=== PATIENT | male | born 1960 | race Caucasian/White ===

== ENCOUNTER 2020-02-19 09:46 | Outpatient (CLI) | payer BC, SELFPAY ==
--- NOTE | 2020-02-19 10:00 | DI.RAD_ITS ---
EXAM: XR KNEE RT 3V AP,LAT,TIERA CLINICAL HISTORY: pain right knee, M25.569. TECHNIQUE: 2D digital imaging was performed. COMPARISON: No exams were available for comparison FINDINGS: There is mild narrowing of the medial femoral tibial joint space. The joint spaces are otherwise wel l maintained. Enthesophytes are seen arising from the anterior patella. The bones are intact. The bones are normally mineralized. IMPRESSION: Mild degenerative changes of the right knee. DATA REPOSITORY: RADIATION DOSE DELIVERED:
--- NOTE | 2020-02-19 10:00 | DI.RAD_ITS ---
EXAM: XR KNEE LT 3V AP,LAT,TIERA CLINICAL HISTORY: pain left knee, M25.569. TECHNIQUE: 2D digital imaging was performed. COMPARISON: CR XR KNEE RT 3V AP,LAT,TIERA from 02/19/2020 FINDINGS: There is mild joint space narrowing and periarticular spurring in the medial femoral tibial joint spa ce. There is mild spurring of the posterior patella. The bones are intact and normally mineralized. The soft tissues are unremarkable. IMPRESSION: [id number] degenerative changes of the left knee. DATA REPOSITORY: RADIATION DOSE DELIVERED:
--- NOTE | 2020-02-19 10:00 | DI.RAD_ITS ---
EXAM: XR HIP LT COMPLETE AP PELVIS CLINICAL HISTORY: Left hip pain, M25.552. TECHNIQUE: 2D digital imaging was performed. COMPARISON: No exams were available for comparison FINDINGS: In the left hip there is mild joint space narrowing and spurring at the femoral head. The bones are intact and normally mineralized. The sacroiliac joints are intact as is the symphysis pubis. Mild d egenerative changes are seen in the lower lumbar spine. The soft tissues are unremarkable. IMPRESSION: Mild degenerative changes of the left hip. DATA REPOSITORY: RADIATION DOSE DELIVERED:
== END 2020-02-19 10:06 ==
PROVIDERS: PCP Family Medicine; Visit Provider Family Medicine
DX: M25.561 Pain in right knee (principal); M17.0 Bilateral primary osteoarthritis of knee; M25.562 Pain in left knee; M25.552 Pain in left hip; M16.12 Unilateral primary osteoarthritis, left hip
CPT/HCPCS: 73562; 73502

== ENCOUNTER 2020-02-29 03:15 | Outpatient (CLI) | payer BC, SELFPAY ==
[2020-02-29 08:58] LABS: Hemoglobin A1C 7.5 % (3.8-5.6)
[2020-02-29 09:24] LABS: Anion Gap 9.5 mmol/L (3-11); BUN 12 mg/dL (7-18); CO2 26.5 mmol/L (21.0-32.0); CREATININE 0.94 mg/dL (0.70-1.30); Calcium 9.4 mg/dL (8.5-10.1); Calculated LDL 123 mg/dL (<100); Chloride 102 mmol/L (98-107); Cholesterol 197 mg/dL (<200); Glucose 199 mg/dL (74-106); HDL Cholesterol 34 mg/dL (40-60); Potassium 4.5 mmol/L (3.5-5.1); Sodium 138 mmol/L (136-145); Triglyceride 204 mg/dL (<150)
== END 2020-02-29 03:35 ==
PROVIDERS: PCP Family Medicine; Visit Provider Family Medicine
DX: I10 Essential (primary) hypertension (principal); E11.9 Type 2 diabetes mellitus without complications
CPT/HCPCS: 36415; 80048; 80061; 83036

== ENCOUNTER 2020-03-17 11:28 | Outpatient (CLI) | payer BC, SELFPAY ==
--- NOTE | 2020-03-17 11:15 | DI.RAD_ITS ---
EXAM: XR HAND RT COMPLETE CLINICAL HISTORY: right hand pain. TECHNIQUE: 2D digital imaging was performed. COMPARISON: No exams were available for comparison FINDINGS: There is an old nonunited fracture of the proximal pole of the scaphoid. There is also deformity of the distal radius. Degenerative changes are seen at the radial carpal and intercarpal region. There is also joint space narrowing and spurring at the 3rd metacarpophalangeal joint and interphalangeal joints of the fingers. IMPRESSION: Degenerative changes. 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 DATA REPOSITORY: RADIATION DOSE DELIVERED:
== END 2020-03-17 11:48 ==
PROVIDERS: PCP Family Medicine; Referring Provider Family Medicine; Visit Provider Student in an Organized Health Care Education/Training Program
DX: M79.641 Pain in right hand (principal); M19.041 Primary osteoarthritis, right hand
CPT/HCPCS: 73130

== ENCOUNTER 2020-03-20 01:51 | Outpatient (CLI) | payer BC, SELFPAY ==
--- NOTE | 2020-03-20 07:15 | DI.RAD_ITS ---
EXAM: RF JOINT INJECTION FLUORO GUID CLINICAL HISTORY: L HIP INJ UNDER FLUORO,lt hip pain,m25.552. TECHNIQUE: 2D and realtime digital imaging was performed. COMPARISON: No exams were available for comparison FINDINGS: Fluoroscopy was provided for guidance with performing a left hip injection. Please see procedure note for details. FLUORO TIME: 1.6 seconds RADIATION DOSE DELIVERED:
[2020-03-20] MEDS: Omnipaque 300 MG/ML 10 ML BTL IJ (15:09)
[2020-03-20] MEDS: Bupivacaine 0.5% Pres-Free 10 ML VIAL 6 ML IV (15:09)
[2020-03-20] MEDS: methylPREDNISolone ACETATE 80 MG/ML VIAL IM (15:10)
--- NOTE | 2020-03-20 21:38 | W.PROCNOTE ---
Date of service: 03/20/20 Time of Service: 14:38 Procedure Note Date of procedure: 03/20/20 Procedure: Left Hip Injection with Fluoroscopic Guidance Surgeon/Proceduralist/Physician: Lopez Hogue Procedure Diagnosis: Left Hip Osteoarthritis Procedure Indications: Ashwin has had persistent pain of the LEFT hip and groin. Noninvasive measures have been tried. To serve as both diagnostic and therapeutic, an injection under fluoroscopy was recommended. I had discussed the risks of the procedure and the patient elected to proceed. Procedure Description: Ashwin was greeted in the flouroscopy room. The correct side was identified and the consent was reviewed with the patient and signed. The patient was then placed in the supine position on the fluoroscopy table. The LEFT hip was then prepped with Chloraprep. The anterolateral injection starting point was identiifed by bony landmarks and fluoroscopy. The skin and soft tissue in the tract of the injection was anesthetized with 1% Lidocaine. A spinal needle was then inserted deep into the hip joint at the level of the lateral femoral neck under fluoroscopic guidance. A small amount of Omnipaque solution was injected to confirm intraarticular placement. Once confirmed, the hip was injected with 6cc of 0.5% Bupivicaine and 80mg of Depo-Medrol. A bandaid was placed on the injection site. The patient tolerated the procedure well and noted improvement in pre-injection pain.
== END 2020-03-20 02:11 ==
PROVIDERS: PCP Family Medicine; Visit Provider Student in an Organized Health Care Education/Training Program
DX: M16.12 Unilateral primary osteoarthritis, left hip
CPT/HCPCS: 20610; 77002; J1040

== ENCOUNTER 2020-03-26 08:29 | Outpatient (CLI) | payer BC, SELFPAY ==
--- NOTE | 2020-03-26 14:46 | DI.CT_ITS ---
EXAM: CT UPPER EXTREMITY RT WO CLINICAL HISTORY: pain in joints of rt hand, m25.541,metacarpophalangeal joint pain TECHNIQUE: COMPARISON: CR XR HAND RT COMPLETE from 03/17/2020 FINDINGS: CT examination of the hand was performed utilizing multi slice acquisition and multiplanar reconstruc tion. The patient reportedly has pain reparable to the 4th metacarpal. Bones of the hand generally appear fairly well mineralized. Carpus: There are multiple sub chondral cyst visible in the carpus, presumably on a degenerative basi s. Carpal alignment appears generally within normal limits. There is an apparent chronic navicular waist fracture with 2-3 millimeters displacement. A free couple of tiny os ossific bodies are seen a t radial navicular joint and also at radial lunate joint. Metacarpals and phalanges there is narrowing of the cartilaginous joint spaces of the M CP joints and IP joints, most marked at the 3rd MCP joint. There is a sub chondral cyst of the head of the 4th me tacarpal, no gross erosive or destructive process identified. 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 Degenerative changes of the carpus, the MCP joints, and the IP joints of the hand as described.
== END 2020-03-26 08:49 ==
PROVIDERS: PCP Family Medicine; Visit Provider Student in an Organized Health Care Education/Training Program
DX: M25.541 Pain in joints of right hand (principal); M19.041 Primary osteoarthritis, right hand; M19.031 Primary osteoarthritis, right wrist
CPT/HCPCS: 73200

== ENCOUNTER 2020-07-10 01:18 | Outpatient (CLI) | payer BC, SELFPAY ==
--- NOTE | 2020-07-10 13:38 | W.PROCNOTE ---
Date of service: 07/10/20 Time of Service: 13:39 Procedure Note Date of procedure: 07/10/20 Procedure: Left Hip Injection with Fluoroscopic Guidance Surgeon/Proceduralist/Physician: Lopez Hogue Procedure Diagnosis: Left Hip Osteoarthritis Procedure Indications: Ashwin has had persistent pain of the LEFT hip and groin. Noninvasive measures have been tried. To serve as both diagnostic and therapeutic, an injection under fluoroscopy was recommended. I had discussed the risks of the procedure and the patient elected to proceed. Procedure Description: Ashwin was greeted in the flouroscopy room. The correct side was identified and the consent was reviewed with the patient and signed. The patient was then placed in the supine position on the fluoroscopy table. The LEFT hip was then prepped with Chloraprep. The anterolateral injection starting point was identiifed by bony landmarks and fluoroscopy. The skin and soft tissue in the tract of the injection was anesthetized with 1% Lidocaine. A spinal needle was then inserted deep into the hip joint at the level of the lateral femoral neck under fluoroscopic guidance. A small amount of Omnipaque solution was injected to confirm intraarticular placement. Once confirmed, the hip was injected with 6cc of 0.5% Bupivicaine and 80mg of Depo-Medrol. A bandaid was placed on the injection site. The patient tolerated the procedure well and noted improvement in pre-injection pain.
[2020-07-10] MEDS: Bupivacaine 0.5% Pres-Free 10 ML VIAL 6 ML IV (14:17)
[2020-07-10] MEDS: Omnipaque 300 MG/ML 10 ML BTL 1.5 ML IJ (14:48)
[2020-07-10] MEDS: methylPREDNISolone ACETATE 80 MG/ML VIAL IM (14:49)
--- NOTE | 2020-07-10 15:30 | DI.RAD_ITS ---
EXAM: RF JOINT INJECTION FLUORO GUID CLINICAL HISTORY: L HIP INJ UNDER FLUORO,DJD LT HIP, PRIMARY OA LT HIP,M16.12 TECHNIQUE: 2D and realtime digital imaging was performed. CONTRAST MATERIAL: Water soluble contrast was administered. COMPARISON: No exams were available for comparison FINDINGS: Fluoroscopy was provided for Dr. Hogue during the performance of a hip injection. Please refer t o the procedure report for complete details. Fluoro time: 15 seconds
== END 2020-07-10 01:38 ==
PROVIDERS: PCP Nurse Practitioner; Visit Provider Student in an Organized Health Care Education/Training Program
DX: M16.12 Unilateral primary osteoarthritis, left hip (principal); M25.552 Pain in left hip; R10.32 Left lower quadrant pain
CPT/HCPCS: 20610; 77002; J1040

== ENCOUNTER 2020-09-23 02:21 | Outpatient (CLI) | payer BC, SELFPAY ==
[2020-09-24 12:45] LABS: COVID-19 RT-PCR UVMMC Result Negative (Negative)
== END 2020-09-23 02:22 | disposition home or self-care (01) ==
LOC: LBO 02:21
PROVIDERS: PCP Nurse Practitioner; Visit Provider Surgery
DX: Z11.52 Encounter for screening for COVID-19 (principal); Z01.818 Encounter for other preprocedural examination
CPT/HCPCS: U0003

== ENCOUNTER 2020-09-26 12:04 | Day surgery (SDC) | payer BC, SELFPAY ==
[2020-09-26 12:13] VITALS: BP 151/92; PULSE 92; RESP 20; TEMP 36.4; O2SAT 95
[2020-09-26] MEDS: Lactated Ringers 1,000 ML 80 ML IV (12:34)
[2020-09-26 13:50] VITALS: BP 129/74; PULSE 72; RESP 21; TEMP 36.9; O2SAT 96
[2020-09-26 13:55] VITALS: BP 130/74; PULSE 72; RESP 16; TEMP 36.9; O2SAT 95
[2020-09-26 14:00] VITALS: BP 141/81; PULSE 73; RESP 13; TEMP 36.9; O2SAT 95
--- NOTE | 2020-09-26 14:15 | W.PM.DSUDISC ---
Discharge Plan Disposition Patient Disposition: HOME Condition: Good Discharge Details Reason For Visit: colon scope Attending Provider: Keke Monique Primary Care Provider: Imelda Salgado Home Meds and New Rx's Prescriptions: Continued metformin 500 mg tablet 500 mg PO BID Qty: 180 RF: 4 amlodipine 5 mg tablet 5 mg PO DAILY Qty: 30 RF: 0 metoprolol succinate 100 mg tablet extended release 24 hr 100 mg PO DAILY Qty: 90 RF: 3 atorvastatin 40 mg tablet 40 mg PO QPM Qty: 90 RF: 4 lisinopril 40 mg tablet 40 mg PO DAILY Qty: 90 RF: 4 Tart You 1 EACH capsule 2 ea PO DAILY Qty: 180 RF: 0 aspirin [Aspirin Low-Strength] 81 MG tablet,chewable 2 tab PO DAILY RF: 0 Tart You Extract 1,000 mg Capsule 2,000 mg PO DAILY RF: 0 Discontinued polyethylene glycol 3350 17 gram/dose powder 238 g PO ONCE Qty: 238 RF: 0 bisacodyl [Dulcolax (bisacodyl)] 5 mg tablet,delayed release (DR/EC) 5 mg PO ONCE Qty: 4 RF: 0 Discharge Instructions Additional Instructions: Findings:normal colon Follow up:I would not recommend any further screening colonoscopies. If you develop changes in your bowel, that persists more than two weeks, rectal bleeding that persists more than two weeks, or unexplained weight loss, please see your primary doctor. Please call if you develop: fevers >101.5 Nausea or Vomiting Abdominal pain that is not transient DAY SURGERY UNIT POST COLONOSCOPY INSTRUCTIONS 1. Because there will be medication in your system for the next 24 hours, you may feel a little sleepy. Your coordination will be affected. Therefore: a. Do not drive or operate dangerous equipment for 24 hours. b. Do not drink alcohol beverages for 24 hours (not even beer). c. Plan to go home and rest for the day. 2. Generally there are no restrictions on your activity after a day or so has gone by, but you may feel a bit fatigued for a few days. 3 After you arrive home you may have a light meal and return to a normal diet as you can tolerate it without feeling sick to your stomach. 4. After surgery, you may feel pain or discomfort. This should be only transient, but if it persists please contact your doctor. 5. If there are any questions regarding the findings of your procedure, please feel free to contact your doctor. 6. If you are unable to contact your doctor with a problem, contact the hospital at [phone]. 7. Continue all your regular medications unless directed otherwise. I understand the above instructions and have no questions. Signature of Patient or Responsible Adult Escort Date/Time Name of Responsible Adult Escort Signature of Nurse Date/Time Activity:: No strenuous activity or lifting over 20 pounds x 24 hours. Diet:: Small light meals x24 hours. Discharge Orders Discharge Orders: Discharge Order (Routine); Ordered 09/26/20 Ordered By: Keke Monique DS: Diagnosis Discharge Diagnosis (1) Colon cancer screening: Status: Acute
--- NOTE | 2020-09-26 14:20 | COLE_ITS ---
Date of service: 09/26/20 Time of Service: 14:20 Colonoscopy Report Date of procedure: 09/26/20 Pre-op diagnosis general: CRC screen Post-op diagnosis procedure note: same Surgeon: Keke Monique Anesthesia proc note operative: GETA Estimated blood loss (mL): 0 Pathology: none sent Complications: None Disposition: PACU Prep: Miralax/Dulcolax Retraction Time: 8 mins Procedure Description: After informed consent was obtained the patient was taken to the procedure room and placed in a left decubitous position. Monitors were applied and a time out was done. The patients name, date of , procedure, allergies to medications and metal in their body was reviewed. The patient was then sedated. Once sedated and comfortable a rectal exam was done. External exam was normal. Internal exam revealed a normal sphincter tone and no palpable masses. The scope was then introduced and retrofelexed. No internal hemorrhoids were identified. The scope was then advanced to the cecum w/ out difficulty. The TI and appendiceal orifice were identified. The prep was good. The scope was then slowly retracted over 8 minutes back into the rectum. There are no polyps, AVMs, or diverticula visualized. The mucosa is pink and healthy. The scope was removed and the patient was woken up and taken back to Same day surgery in stable condition. The patient tolerated the procedure well and there were no immediate complicati ons. Follow up: The patient doesn't require any further colonoscopies, unless they develop changes in bowel habits or other new gastrointestinal complaints.
[2020-09-26 14:48] VITALS: BP 115/62; PULSE 69; RESP 22; TEMP 36.7; O2SAT 94
== END 2020-09-26 15:05 | disposition home or self-care (01) ==
PROVIDERS: PCP Nurse Practitioner; Visit Provider Surgery
PROC: 0DJD8ZZ Inspection of Lower Intestinal Tract, Via Natural or Artificial Opening Endoscopic (ICD-10-PCS; CPT 45378; principal; 2020-09-26 09:45)
DX: Z12.11 Encounter for screening for malignant neoplasm of colon (principal); G47.33 Obstructive sleep apnea (adult) (pediatric)
CPT/HCPCS: 45378; J2001; J2250

== ENCOUNTER 2020-10-16 03:24 | Outpatient (CLI) | payer BC, SELFPAY ==
[2020-10-16 08:12] LABS: Hemoglobin A1C 7.5 % (<5.7)
[2020-10-16 08:36] LABS: CREATININE 0.8 mg/dL (0.70-1.30); Calculated LDL 47 mg/dL (<100); Cholesterol 104 mg/dL (<200); HDL Cholesterol 37 mg/dL (40-60); Potassium 4.2 mmol/L (3.5-5.1); Triglyceride 104 mg/dL (<150)
== END 2020-10-16 03:25 | disposition home or self-care (01) ==
LOC: LBO 03:24
PROVIDERS: PCP Nurse Practitioner; Visit Provider Nurse Practitioner
DX: E11.9 Type 2 diabetes mellitus without complications (principal); I10 Essential (primary) hypertension; E78.00 Pure hypercholesterolemia, unspecified
CPT/HCPCS: 36415; 80061; 82565; 83036; 84132

== ENCOUNTER 2020-11-13 01:14 | Outpatient (CLI) | payer BC, SELFPAY ==
--- NOTE | 2020-11-13 09:45 | DI.RAD_ITS ---
EXAM: XR HIP LT AP LAT ONLY CLINICAL HISTORY: f/u, worsening pain of left hip,M16.12,DJD LT HIP. TECHNIQUE: 2D digital imaging was performed. COMPARISON: CR XR HIP LT COMPLETE AP PELVIS from 02/19/2020 FINDINGS: There is no evidence of left hip fracture but there are moderate degenerative changes with some mid l evel joint space narrowing evident in the hip joint. No ominous osseous lesions. Bone density sheila l. Some degenerative changes noted in the ipsilateral sacroiliac joint. IMPRESSION: DATA REPOSITORY: RADIATION DOSE DELIVERED:
== END 2020-11-13 01:34 ==
PROVIDERS: PCP Nurse Practitioner; Visit Provider Student in an Organized Health Care Education/Training Program
DX: M25.552 Pain in left hip (principal); M16.12 Unilateral primary osteoarthritis, left hip
CPT/HCPCS: 73502

== ENCOUNTER 2021-07-06 03:11 | Outpatient (CLI) | payer BC, SELFPAY ==
[2021-07-06 14:05] LABS: Hemoglobin A1C 7.6 % (<5.7)
[2021-07-06 14:32] LABS: CREATININE 0.9 mg/dL (0.70-1.30); Calculated LDL 79 mg/dL (<100); Cholesterol 143 mg/dL (<200); HDL Cholesterol 39 mg/dL (40-60); Potassium 4.4 mmol/L (3.5-5.1); Triglyceride 126 mg/dL (<150)
== END 2021-07-06 03:12 | disposition home or self-care (01) ==
LOC: LOS 03:12
PROVIDERS: PCP Nurse Practitioner; Visit Provider Nurse Practitioner
DX: E11.9 Type 2 diabetes mellitus without complications (principal); I10 Essential (primary) hypertension; E78.00 Pure hypercholesterolemia, unspecified
CPT/HCPCS: 36415; 80061; 82565; 83036; 84132

== ENCOUNTER 2021-07-22 12:24 | Outpatient (REF) | payer BC, SELFPAY | END 2021-07-22 12:25 | disposition home or self-care (01) | LOC: LBN 12:24 | PROVIDERS: PCP Nurse Practitioner; Visit Provider Nurse Practitioner | DX: E11.9 Type 2 diabetes mellitus without complications (principal); I10 Essential (primary) hypertension | CPT/HCPCS: 82043; 82570 ==

== ENCOUNTER 2021-10-02 02:19 | Outpatient (CLI) | payer BC, SELFPAY ==
[2021-10-02 12:14] LABS: Hemoglobin A1C 8.3 % (<5.7)
[2021-10-02 13:03] LABS: COMMENT (LAB VIEW ONLY) 45.06 mg/dL
[2021-10-02 13:04] LABS: Microalb ug/mg Crea 123.6 ug/mg Cr
== END 2021-10-02 02:20 | disposition home or self-care (01) ==
LOC: LBO 02:19
PROVIDERS: PCP Nurse Practitioner; Visit Provider Nurse Practitioner
DX: E11.9 Type 2 diabetes mellitus without complications (principal)
CPT/HCPCS: 36415; 82043; 82570; 83036

== ENCOUNTER 2022-06-24 11:05 | Outpatient (CLI) | payer BC, SELFPAY ==
--- NOTE | 2022-06-24 11:00 | RT.EKG_ITS ---
APPROVED REPORT Exam: Resting ECG Reason for Exam: chest discomfort Patient Location: O HR:136 bpm ECG Measurements Heart Rate 136 AXIS ME [id number] P [id number] QRSd 106 QRS 6 QT 348 T 28 QTc 524 Conclusion Atrial fibrillation...V-rate 97-167, irreg A-activity Low voltage, precordial leads...precordial leads <1.0mV Prolonged QT interval...QTc >500mS
== END 2022-06-24 11:06 | disposition home or self-care (01) ==
LOC: DI.CM 11:06
PROVIDERS: PCP Nurse Practitioner; Visit Provider Nurse Practitioner Family
DX: R07.89 Other chest pain (principal); R94.31 Abnormal electrocardiogram [ECG] [EKG]; I48.91 Unspecified atrial fibrillation
CPT/HCPCS: 93010

== ENCOUNTER 2022-06-24 11:33 | Inpatient (IN) | payer BC, SELFPAY ==
[2022-06-24] VITALS (53 sets, daily range): BP systolic 80–207; BP diastolic 40–132; PULSE 69–156; RESP 6–34; TEMP 36.4–38; O2SAT 90–97
--- NOTE | 2022-06-24 11:30 | RT.EKG_ITS ---
APPROVED REPORT Exam: Resting ECG Reason for Exam: A simon Patient Location: E HR:139 bpm ECG Measurements Heart Rate 139 AXIS UT [id number] P [id number] QRSd 99 QRS 24 QT 333 T 30 QTc 507 Conclusion Atrial fibrillation...V-rate 101-167, irreg A-activity Low voltage, precordial leads...precordial leads <1.0mV Prolonged QT interval...QTc >500mS Rate related ST changes
--- NOTE | 2022-06-24 11:53 | ED.GENADUL_ITS ---
Discharge Plan Disposition Patient Disposition: [facility] INPATIENT Condition: Stable Discharge Details Clinical Impression: Atrial fibrillation with RVR, Rectal pain Primary Care Provider: Imelda Salgado ED Provider: Jordy Beatty [place] Meds and New Rx's Prescriptions: No Action metformin 1,000 mg tablet 1,000 mg PO BID Qty: 180 4RF atorvastatin 40 mg tablet 40 mg PO QPM Qty: 90 4RF amlodipine 10 mg tablet 10 mg PO DAILY Qty: 90 4RF lisinopril 40 mg tablet 40 mg PO DAILY Qty: 90 4RF metoprolol succinate 200 mg tablet extended release 24 hr 200 mg PO DAILY Qty: 90 4RF hydrochlorothiazide 25 mg tablet 25 mg PO DAILY Qty: 90 4RF Jardiance 25 mg tablet 25 mg PO DAILY Qty: 90 4RF Tart You 1 EACH capsule 2 ea PO DAILY Qty: 180 Rx Instructions: For gout prevention aspirin [Aspirin Low-Strength] 81 MG tablet,chewable 2 tab PO DAILY Medical Decision Making Patient had been to primary care for rectal pain and pressure which he has had for a week and was found to be in rapid A. fib. He does have history back in 2014 according to him. He is on metoprolol which he took this morning. He is not on anticoagulation. He is completely asymptomatic. IV established and laboratory studies obtained. Given that he took 200 of metoprolol already this morning and remains in rapid A. fib at 150 we will proceed with Cardizem bolus and drip. His EKG shows rate related ST changes but no evidence of acute infarct. Chest x-ray ordered. Patient's A. fib did slow after Cardizem bolus and drip but still continues to run as high as 120 at times. Drip uptitrated to 15 mg/h. Patient continues to complain of rectal pain and pressure. I called and spoke to the provider who saw him. She reports that rectal exam was tender overall not prostate tenderness. She also reports blood on the glove when she remove her finger. Because of this I did elect to scan abdomen pelvis to rule out potential perirectal or pelvic abscess which may be driving the A. fib. He was given morphine prior to CAT scan for his discomfort. Patient's laboratory studies are unremarkable. His white count and hemoglobin are normal. Chemistries unremarkable other than a slightly low potassium at 3.4 and a minimal anion gap at 13. Liver function is normal. TSH is normal. Troponin is negative. Urine is still pending. CT scan per radiology negative for acute process. Will discuss with hospitalist for admission to ICU for rate control and management of his A. fib and consider surgical consult for his rectal pain and pressure. Medical Records Medical records reviewed: Yes I reviewed the patient's medical records. Lab Data Lab results reviewed: Yes I reviewed the patient's lab results. ECG Data Attestation: I personally reviewed and interpreted this ECG (s) as follows: Prior ECG tracings: not available for review Interpretation: See EKG HPI General Mode of arrival: ambulatory . Date/Time Provider Initiated Documentation: 06/24/22 11:53 . Limitations to Documentation: no limitations . Information obtained by: patient . HPI Narrative: Patient presents to ED with rapid atrial fibrillation. Patient had gone to primary care for rectal pain and pressure which he has had for few weeks now. He was found to be tachycardic there. EKG showed atrial fibrillation. Patient reports prior episode in 2014. He is on a beta-jorge but he is not on anticoagulation. He denies having any type of chest pain or pressure, palpitations, shortness of breath, nausea. He had no idea that he was in atrial fibrillation. Per provider report his rectal exam was Hemoccult positive. Patient has not noticed any dark or bloody stool. He is not having any vomiting or abdominal pain. He has pain and discomfort with sitting as well as having bowel movements. He has no urinary symptoms. Related Data Home Medications Medication Instructions Recorded Confirmed aspirin 81 mg chewable tablet 2 tab PO DAILY 02/01/13 06/24/22 (Aspirin Low-Strength) vit C 30 mg-s.you 250 mg-celery 2 ea PO DAILY #180 caps 12/24/14 06/24/22 seed 75 mg-grape seed extrt capsule (Tart You) amlodipine 10 mg tablet 10 mg PO DAILY #90 tabs 07/03/21 06/24/22 atorvastatin 40 mg tablet 40 mg PO QPM #90 tabs 07/03/21 06/24/22 lisinopril 40 mg tablet 40 mg PO DAILY #90 tabs 07/03/21 06/24/22 metformin 1,000 mg tablet 1,000 mg PO BID #180 tabs 07/03/21 06/24/22 hydrochlorothiazide 25 mg tablet 25 mg PO DAILY #90 tabs 07/23/21 06/24/22 metoprolol succinate 200 mg 200 mg PO DAILY #90 tabs 09/11/21 06/24/22 tablet,extended release 24 hr empagliflozin 25 mg tablet 25 mg PO DAILY #90 tabs 10/06/21 06/24/22 (Jardiance) Previous Rx's Medication Instructions Recorded amlodipine 10 mg tablet 10 mg PO DAILY #90 tabs 07/03/21 atorvastatin 40 mg tablet 40 mg PO QPM #90 tabs 07/03/21 lisinopril 40 mg tablet 40 mg PO DAILY #90 tabs 07/03/21 metformin 1,000 mg tablet 1,000 mg PO BID #180 tabs 07/03/21 hydrochlorothiazide 25 mg tablet 25 mg PO DAILY #90 tabs 07/23/21 metoprolol succinate 200 mg 200 mg PO DAILY #90 tabs 09/11/21 tablet,extended release 24 hr empagliflozin 25 mg tablet 25 mg PO DAILY #90 tabs 10/06/21 (Jardiance) Allergies Allergy/AdvReac Type Severity Reaction Status Date / Time sulfamethoxazole AdvReac Intermediate Headache Verified 02/04/22 08:40 [From Bactrim] and stiff neck trimethoprim [From Bactrim] AdvReac Intermediate Headache Verified 02/04/22 08: 40 and stiff neck General Stated Complaint: Chest Pain YUKO: 3 Review of Systems Narrative: 06/04 Review of Systems completed and is negative except as stated above in HPI (Systems reviewed: Const, Eyes, ENT, Resp, CV, GI, , MSK, Skin, Neuro) PFSH All Active Problems (Updated 06/24/22 @ 15:38 by Jordy Beatty MD) Atrial fibrillation with RVR (Acute) Rectal pain (Acute) Lumbago (Acute) L5-S-1 disc and spinal stenosis; discectomy and laminectomy Metacarpophalangeal joint pain of right hand (Acute) Microalbuminuria due to type 2 diabetes mellitus (Acute) 08/10- microalb/ creat ration 200 Skin lesion (Acute) Degenerative joint disease of left hip (Acute) Injection under fluoroscopy: 03/20/20 Osteoarthrosis (Chronic) Peripheral venous insufficiency (Acute) Obesity (Acute) Gout (Acute) Medical History Atrial fibrillation Diabetes mellitus (01/26/11) Difficult airway At [facility] [place], records unavailable because intubation too long ago Essential hypertension (06/25/13) Hx of gout Hypercholesterolemia TYPE 4 HYPERLIPIDEMIA Hypertension Obesity, Class III, BMI 40-49.9 (morbid obesity) MIRI (obstructive sleep apnea) a. on CPAP at night Surgical History Colonoscopy - IV Sedation 8 years ago-normal DISCECTOMY 01/20 H/O surgical procedure a. back surgery b. wrist surgery Repair of umbilical hernia (08/04/17) Family History Mother , 84 Essential hypertension Heart disease Father , 80 Diabetes Essential hypertension Personal history of malignant neoplasm BLADDER.MELANOMA Depression Heart disease Stroke Brother Essential hypertension Maternal Grandfather , 93 Diabetes Alcohol abuse Heart disease Hyperlipidemia Paternal Grandfather , 71 Alcohol abuse Essential hypertension Heart disease Maternal Grandmother , 70 Diabetes Essential hypertension Heart disease Stroke Grandmother , 84 Alcohol abuse Heart disease Son Essential hypertension Social History Smoking/Tobacco Use Status: Never Second Hand Exposure: Yes Smoking risk assessment performed?: Yes Alcohol Intake: current Alcohol Intake frequency: a few times a month Alcohol type: beer and wine Drug use: Never Substance use type: does not use Household members: spouse and children Housing: house Communication Needs: None Do you need help understanding health information?: Never Sexually active: Yes Do you think of yourself as: straight/heterosexual Current gender identity: male What is your relationship status?: How often do you talk on the phone with friends or family?: three or more times per week How often do you get together with friends or relatives?: once per week Do you belong to any clubs or organized social groups?: no Panel score (0-1 are the most socially isolated patients): 2 What type of physical activity do you participate in: walking and bicycling Duration: 45-60 minutes/day Frequency: 5-6 times per week Radha/Amish: Denominational Special radha needs: No Seatbelt use: sometimes Helmet use: Yes Helmet use: always Drive intox or ride w/intox utility worker driver: No Do you feel safe at home: Yes Do you feel safe in your relationship?: Yes Exam Narrative Exam Narrative: Const: Morbidly obese male in NAD. HEENT: NC/AT. Normal facial exam. Eyes: Normal conjunctiva and sclera. Neck: Supple. Trachea midline. Lungs: Normal respiratory effort. Lungs are clear. Cor: irr/irr tachy without murmur/gallop. Good radial pulses. GI: Soft. NT/ND. No guarding or rebound. Neuro: A+O x 3. Normal speech, mentation, gait. Cranial nerves II - XII grossly intact. No gross motor or sensory deficit. Ext: No C/C/E. Skin: Warm and dry without rash. Course Vital Signs Vital signs: Vital Signs Temperature 97.6 F 06/24/22 11:39 Pulse 80 06/24/22 11:39 Respiratory Rate 20 06/24/22 11:39 Blood Pressure 134/86 06/24/22 11:39 Pulse Oximetry 97 06/24/22 11:39 Temperature 97.6 F 06/24/22 11:39 Temperature Source Oral 06/24/22 11:39 Pulse 80 06/24/22 11:39 Respiratory Rate 20 06/24/22 11:44 Respiratory Effort Non-Labored 06/24/22 11:44 Respiratory Depth Normal 06/24/22 11:44 Respiratory Pattern Normal 06/24/22 11:44 Blood Pressure 134/86 06/24/22 11:39 Blood Pressure Position Sitting 06/24/22 11:39 Pulse Oximetry 97 06/24/22 11:39 Oxygen Delivery Method Room Air 06/24/22 11:39 Oxygen Flow Rate 0 06/24/22 11:39 Critical Care Time Critical Care Time Critical Care Time: Yes Total Critical Care Time: 45 Attestation: Upon my evaluation, this patient had a high probability of imminent or life- threatening deterioration, which required my direct attention, intervention, and personal management. I have personally provided 45 minutes of critical care time exclusive of time spent on separately billable procedures. Time includes review of laboratory data, radiology results, discussion with consultants, and monitoring for potential decompensation. Interventions were performed as documented above. PAWSS Have you Been Recently Intoxicated or Drunk Within the Last 30 days?: No Have you Ever Experienced Previous Episodes of Alcohol Withdrawal?: No Have you ever Experienced Withdrawal Seizures?: No Have you ever Experienced Delirium Tremens(DT)s?: No Have you ever undergone Alcohol Rehabilitation Treatment (i.e, inpt ot outpatient treatment programs)?: No Have you ever Experienced Blackouts?: No Have you ever Combined Alcohol with other Downers within the last 90 days?: No Have you ever Combined Alcohol with any other Substance of Abuse during the last 90 days?: No Positive Blood Alcohol level on Presentation? [PCS.BAL]: No Evidence of Increased Autonomic Activity (i.e. HR>120, tremor, sweating, agitation, nausea)?: No Result: 0
[2022-06-24] MEDS: dilTIAZem 25 MG/5 ML VIAL 20 MG IVP (12:17)
[2022-06-24 12:18] LABS: Abs Immature Grans 0.09 10^3/uL (0.0-0.06); Absolute Basophil Count 0.05 10^3/uL (0.0-0.2); Absolute Eosinophil Count 0.08 10^3/uL (0.0-0.7); Absolute Lymphocyte Count 2.22 10^3/uL (1.2-3.4); Absolute Neutrophil Count 4.45 10^3/uL (1.2-6.7); Basophils % 0.6; HCT 48.2 % (40.0-50.0); HGB 16.5 g/dL (13.5-17.5); Immature Grans % 1.1; Lymphocytes % 27.1; MCH 31.3 pg (27.0-33.0); MCHC 34.2 % (32.0-36.0); MCV 91 fL (80-95); MPV 10.4 fL (8.0-11.0); Monocytes % 15.9; Neutrophils % 54.3; Platelet Count 264 10^3/uL (130-400); RBC 5.28 10^6/uL (4.36-5.78); RDW 12.3 % (11.8-14.1); RDW-SD 41.4 fL; WBC 8.19 10^3/uL (4.4-10.8)
[2022-06-24] MEDS: Normal Saline 1,000 ML 1000 ML IV (12:18)
[2022-06-24] MEDS: dilTIAZem 125 MG in Normal Saline 100 ML 10 MG IV (12:34)
[2022-06-24 12:41] LABS: ALT 49 U/L (16-63); AST 28 U/L (15-37); Albumin 3.6 g/dL (3.4-5.0); Alkaline Phosphatase 63 U/L (46-116); BUN 17 mg/dL (7-18); Bilirubin, Total 0.7 mg/dL (0.2-1.0); Calcium 9.6 mg/dL (8.5-10.1); Chloride 103 mmol/L (98-107); Estimated GFR 84.57 (mL/min/1.73m2); Glucose 146 mg/dL (74-106); Magnesium 1.8 mg/dL (1.8-2.4); Potassium 3.4 mmol/L (3.5-5.1); Sodium 140 mmol/L (136-145); TSH (W/Ref FT4) 1.04 uIU/mL (0.36-3.74); Total Protein 8.3 g/dL (6.4-8.2); Troponin I < 50 ng/L (<or=60)
--- NOTE | 2022-06-24 13:07 | DI.RAD_ITS ---
Exam(s) XR PORTABLE CHEST AP EXAM: XR PORTABLE CHEST AP CLINICAL HISTORY: a fib. TECHNIQUE: 2D digital imaging was performed. COMPARISON: No exams were available for comparison FINDINGS: LUNGS: Clear. No pleural abnormality seen. HEART: Normal. MEDIASTINUM: Normal. OTHER FINDINGS: None. IMPRESSION: No acute pulmonary findings. DATA REPOSITORY: RADIATION DOSE DELIVERED: Total DLP
--- NOTE | 2022-06-24 13:30 | DI.CT_ITS ---
Exam(s) CT ABDOMEN PELVIS W EXAM: CT ABDOMEN PELVIS W CLINICAL HISTORY: pelvic/rectal pain TECHNIQUE: COMPARISON: No exams were available for comparison FINDINGS: CT examination of the abdomen and pelvis was performed with bolus infusion of 125 cc of Omnipaque 350 . Images obtained through the lung bases are unremarkable. The liver appears normal with no evidence of a focal mass. Spleen is unremarkable in appearance.. Gallbladder and bile ducts are unremarkable. Pancreas is unremarkable in appearance. There is a right adrenal nodule measuring about 17 millimeters in diameter which is indeterminate. F ollow-up CT recommended in 12 months to assess stability.. Kidneys appear normal with no evidence of renal mass, hydronephrosis, or nephrolithiasis. Unremarkab le bladder. There is no evidence of abdominal or pelvic adenopathy. Abdominal aorta is of normal diameter and no abnormality is seen involving major visceral branches.. Appendix is not specifically visualized but there is no evidence appendicitis. No evidence diverticu litis or bowel obstruction. No significant abdominal wall hernia seen. Impression: Negative CT examination of the abdomen and pelvis. Unexpected findings: Right adrenal nodule, 17 millimeters, follow-up CT recommended in 12 months. RADIATION DOSE DELIVERED: Total DLP Total DLP !Error CTDIvol DATA REPOSITORY: All CT scans at this facility are submitted to the National Radiology Data Registry (NRDR) Dose Index Registry (DIR) with the [employer] (ACR). RADIATION OPTIMIZATION: All CT scans at this facility use at least one of these dose optimization te chniques: automated exposure control; mA and/or kV adjustment per patient size (includes targeted exa ms where dose is matched to clinical indication); or iterative reconstruction.
[2022-06-24] MEDS: MORPHine 4 MG/ML SYR IVP (13:59)
[2022-06-24] MEDS: Omnipaque 350 MG/ML 500 ML BTL-Imaging package IJ (15:10)
[2022-06-24 16:47] LABS: Source Nasal/Nares
[2022-06-24 17:03] LABS: Troponin I < 50 ng/L (<or=60)
[2022-06-24 17:17] LABS: COVID-19 PCR Negative (Negative)
[2022-06-24] MEDS: Potassium Chloride 20 MEQ TABCR 40 MEQ PO (18:03)
--- NOTE | 2022-06-24 18:03 | HPE_ITS ---
Date of service: 06/24/22 Time of Service: 18:03 Assessment and Plan Assessment and plan (1) Atrial fibrillation with RVR: Status: Acute Assessment and plan: Continue diltiazem drip titrate for rate control resume his his Toprol XL with titration of the dose. He is currently on 200 mg of Toprol-XL a day, this can be titrated upwards of 400 mg/day. As we have no WILLIAN capabilities at [facility], he can not be cardioverted w/out risk of stroke. In the setting of reported blood on rectal exam, I am hesitant to start him on anticoagulation. I will ask surgery to weigh in on his alleged rectal bleeding since he had a normal c-scope approximately 1 1/2 yrs ago. Perhaps this was a hemorrhoidal bleed and he can have an anoscopy once his afib rate is controlled. We will continue to trend his troponin I levels and get updated echocardiogram in the morning. He has known MIRI which is a major risk for afib. he may need a retitration study. He has not had one since his initial study at [facility] [place] several years ago. He also may need GXT/MPI to rule out ischemic heart disease. However, despite his obesity, he te lls me he is fairly active and did a lot of bicycling and hiking while on vacation in [place] TSH was checked in the emergency room and was normal. Critical care time spent interviewing and examining the patient, reviewing studies, discussing case with patient's nurse and consulting physicians was 60 m inutes (2) Rectal pain: Status: Acute Assessment and plan: I suspet he has hemorrhoidal pain and bleeding. he has been using Preparation H while he was traveling. (3) Diabetes mellitus: Assessment and plan: controlled w/ oral agents (metformin, and Jardiance). I will hold his metformin in light of his CTA today. control acute glycemia w/ SSI Qualifiers: Diabetes mellitus type: type 2 Diabetes mellitus long-term insulin use: without long-term use Diabetes mellitus complication status: without complication Qualified Code(s): E11.9 - Type 2 diabetes mellitus without complications (4) Hypercholesterolemia: Assessment and plan: continue his atorvastatin. needs an updated lipid profile (5) Hypertension: Assessment and plan: continue amlodipine, lisinopril and titrate his Toprol XL (6) MIRI (obstructive sleep apnea): Assessment and plan: cont. his CPAP. Recommend repeat titration study as outpatient to be sure his CPAP settings are adequate. History of Present Illness History of Present Illness Chief Complaint: rectal discomfort Narrative: 62-year-old male with history of type 2 diabetes mellitus (not requiring ins ulin), essential hypertension, hyperlipidemia, MIRI (wears CPAP) who went to [facility] today for a medical exam for complaints of intermittent rectal discomfort. Patient states that he and his had gone on vacation down to [place] and had been on the road with their camper for the last 6 weeks. Just prior to leaving on vacation he had had some severe constipation and felt some rectal discomfort but did not notice any rectal bleeding. Patient had a previous normal colonoscopy on 09/26/2020. Patient states he went into [facility] for examination and while there had a rectal examination in which she reportedly had some blood on the glove of the examiner. Patient did not notice any blood although he says that when he was constipated he did note some blood when he wiped but has not seen any melanotic looking stools nor any hematochezia. During his examination the practitioner noted his heart rate to be irregular and tachycardic and EKG was done in which he was found to be in atrial fibrillation with a rapid rate. He was referred to the emergency room where he was examined by the ED provider and further work-up included routine labs including troponin levels and EKG. Routine labs clued CBC was normal. CMP showed a low potassium at 3.4 but otherwise normal electrolytes. Glucose 146. Magnesium levels normal at 1.8. LFTs were normal. TSH is normal at 1.04. Troponin I level is normal x2 sets at less than 50 ng/L. Chest x-ray was performed showed no acute pulmonary findings. CT of the abdomen pelvis was performed because of the reported blood on the rectal exam. CT abdomen pelvis with contrast showed no acute findings. Does have a right adrenal nodule that measures 17 mm that was of indeterminate density and a follow-up CT scan is recommended in 12 months. Kidneys appear to be normal. He had no abdominal or pelvic adenopathy. Abdominal aorta was normal caliber with normal major visceral branches. Patient had no diverticulitis and no evidence of bowel obstruction or appendicitis. Patient was given a bolus of diltiazem 20 mg IV started on Cardizem drip which was started 10 mg/h been titrated up to 15 mg/h. Patient denies any chest pain or pressure or palpitations. He had 1 previous episode of paroxysmal atrial fibrillation that occurred he believes in 2014 but actually occurred in August 06, 2014 was associated with right leg cellulitis. This was treated with anticoagulation and chemical cardioversion with ibutilide. Echocardiogram at that time was performed and showed concentric LVH with LVEF 55% without regional wall motion abnormalities. Did have mild biatrial enlargement and trace to mild regurgitation and trace of tricuspid regurgitation with no significant aortic valve disease. Patient states he has a family history of atrial fibrillation in his mother and his father both of whom have hypertension and one of them had a stroke. Review of Systems Constitutional Constitutional: Denies chills, Denies fever(s) and Denies night sweats Eyes Eyes: Reports system reviewed and no additional complaints, except as documented and Reports requires corrective lenses ENT Ears, Nose, Mouth, and Throat: Reports system reviewed and no additional complaints, except as documented Cardiovascular Cardiovascular: Reports as per HPI, Denies chest pain, Denies syncope, Denies lightheadedness, Denies radiating jaw, neck or arm pain, Denies palpitations and Denies dyspnea Respiratory Respiratory: Reports as per HPI and Denies dyspnea Gastrointestinal Gastrointestinal: Reports as per HPI, Denies abdominal pain, Denies melena, Denies hematochezia, Denies change in stool character, Reports constipation and Denies vomiting Genitourinary Genitourinary: Reports system reviewed and no additional complaints, except as documented Musculoskeletal Musculoskeletal: Reports system reviewed and no additional complaints, except as documented Integumentary/Breasts Skin/Breast: Reports system reviewed and no additional complaints, except as documented Neurologic Neurologic: Reports system reviewed and no additional complaints, except as documented, Denies syncope and Reports paresthesias (Both feet) Psychiatric Psychiatric: Reports system reviewed and no additional complaints, except as documented Endocrine Endocrine: Reports system reviewed and no additional complaints, except as documented and Denies palpitations Hematologic/Lymphatic Hematologic/Lymphatic: Reports system reviewed and no additional complaints, except as documented Allergic/Immunologic Allergic/Immunologic: Reports system reviewed and no additional complaints, except as documented PFSH All Active Problems Atrial fibrillation with RVR (Acute) Rectal pain (Acute) Lumbago (Acute) L5-S-1 disc and spinal stenosis; discectomy and laminectomy Metacarpophalangeal joint pain of right hand (Acute) Microalbuminuria due to type 2 diabetes mellitus (Acute) 08/10- microalb/ creat ration 200 Skin lesion (Acute) Degenerative joint disease of left hip (Acute) Injection under fluoroscopy: 03/20/20 Osteoarthrosis (Chronic) Peripheral venous insufficiency (Acute) Obesity (Acute) Gout (Acute) Medical History Atrial fibrillation Diabetes mellitus (01/26/11) Difficult airway At [facility] [place], records unavailable because intubation too long ago Essential hypertension (06/25/13) Hx of gout Hypercholesterolemia TYPE 4 HYPERLIPIDEMIA Hypertension Obesity, Class III, BMI 40-49.9 (morbid obesity) MIRI (obstructive sleep apnea) a. on CPAP at night Surgical History Colonoscopy - IV Sedation 8 years ago-normal DISCECTOMY 01/20 H/O surgical procedure a. back surgery b. wrist surgery Repair of umbilical hernia (08/04/17) Family History Mother , 84 Essential hypertension Heart disease Father , 80 Diabetes Essential hypertension Personal history of malignant neoplasm BLADDER.MELANOMA Depression Heart disease Stroke Brother Essential hypertension Maternal Grandfather , 93 Diabetes Alcohol abuse Heart disease Hyperlipidemia Paternal Grandfather , 71 Alcohol abuse Essential hypertension Heart disease Maternal Grandmother , 70 Diabetes Essential hypertension Heart disease Stroke Grandmother , 84 Alcohol abuse Heart disease Son Essential hypertension Social History Smoking/Tobacco Use Status: Never Second Hand Exposure: Yes Smoking risk assessment performed?: Yes Alcohol Intake: current Alcohol Intake frequency: a few times a month Alcohol type: beer and wine Drug use: Never Substance use type: does not use Household members: spouse and children Housing: house Communication Needs: None Do you need help understanding health information?: Never Sexually active: Yes Do you think of yourself as: straight/heterosexual Current gender identity: male What is your relationship status?: How often do you talk on the phone with friends or family?: three or more times per week How often do you get together with friends or relatives?: once per week Do you belong to any clubs or organized social groups?: no Panel score (0-1 are the most socially isolated patients): 2 What type of physical activity do you participate in: walking and bicycling Duration: 45-60 minutes/day Frequency: 5-6 times per week Radha/Pentecostal: Taoism Special radha needs: No Seatbelt use: sometimes Helmet use: Yes Helmet use: always Drive intox or ride w/intox route sales delivery driver: No Do you feel safe at home: Yes Do you feel safe in your relationship?: Yes Meds Allergies and Home Medications Allergies Allergy/AdvReac Type Severity Reaction Status Date / Time sulfamethoxazole AdvReac Intermediate Headache Verified 02/04/22 08:40 [From Bactrim] and stiff neck trimethoprim [From Bactrim] AdvReac Intermediate Headache Verified 02/04/22 08:40 and stiff neck Home Medications Medication Instructions Recorded Confirmed Type aspirin 81 mg chewable tablet 2 tab PO DAILY 02/01/13 06/24/22 History (Aspirin Low-Strength) vit C 30 mg-s.you 250 mg-celery 2 ea PO DAILY #180 caps 12/24/14 06/24/22 History seed 75 mg-grape seed extrt capsule (Tart You) amlodipine 10 mg tablet 10 mg PO DAILY #90 tabs 07/03/21 06/24/22 Rx atorvastatin 40 mg tablet 40 mg PO QPM #90 tabs 07/03/21 06/24/22 Rx lisinopril 40 mg tablet 40 mg PO DAILY #90 tabs 07/03/21 06/24/22 Rx metformin 1,000 mg tablet 1,000 mg PO BID #180 tabs 07/03/21 06/24/22 Rx hydrochlorothiazide 25 mg tablet 25 mg PO DAILY #90 tabs 07/23/21 06/24/22 Rx metoprolol succinate 200 mg 200 mg PO DAILY #90 tabs 09/11/21 06/24/22 Rx tablet,extended release 24 hr empagliflozin 25 mg tablet 25 mg PO DAILY #90 tabs 10/06/21 06/24/22 Rx (Jardiance) Exam Narrative Exam Narrative: Morbidly obese male who is alert and oriented person place time circumstance in no acute distress. HEENT is remarkable for he wears glasses he has his own teeth no dentures. Oropharynx noninjected no exudate Neck is supple nontender no JVD no thyromegaly no cervical adenopathy no carotid bruits, carotid pulses are irregularly irregular slightly tachycardic Chest is obese barrel chested nontender to palpation lungs are clear to auscultation. Heart is irregularly irregular no appreciable murmur rub or gallop slightly tachycardic rate in the 110s Abdomen obese soft nontender no hernia no palpable masses no bruits Lower extremity has bronze discoloration of his legs consistent with chronic venous stasis he has bilateral superficial venous varicosities no calf tenderness no pitting edema feet have calluses on his heels and on plantar surfaces of his great toes there is no open sores he has normal pedal pulses no cyanosis Neuro exam grossly intact no focal cranial nerve deficits normal range of motion and strength sensation grossly intact to light touch fine vibratory sense was not tested on his feet. Results Labs Result diagrams: 06/24/22 12:05 06/24/22 12:05 Labs: Laboratory Results - last 24 hr 06/24/22 06/24/22 06/24/22 12:05 12:05 16:36 WBC 8.19 RBC 5.28 Hgb 16.5 Hct 48.2 MCV 91 MCH 31.3 MCHC 34.2 RDW 12.3 Plt Count 264 MPV 10.4 Immature Gran % 1.1 Neutrophils % 54.3 Lymphocytes % 27.1 Monocytes % 15.9 Eosinophils % 1.0 Basophils % 0.6 Nucleated RBC % 0.0 Absolute Neutrophils 4.45 Absolute Lymphocytes 2.22 Absolute Monocytes 1.30 H Absolute Eosinophils 0.08 Absolute Basophils 0.05 Sodium 140 Potassium 3.4 L Chloride 103 Carbon Dioxide 24.0 Anion Gap 13.0 H BUN 17 Creatinine 1.0 Est GFR (CKD-EPI 2020) 84.57 Glucose 146 H Calcium 9.6 Magnesium 1.8 Total Bilirubin 0.7 AST 28 ALT 49 Alkaline Phosphatase 63 Troponin I < 50 < 50 Total Protein 8.3 H Albumin 3.6 TSH 1.04 COVID-19 Source SARS-CoV-2 (PCR) 06/24/22 16:36 WBC RBC Hgb Hct MCV MCH MCHC RDW Plt Count MPV Immature Gran % Neutrophils % Lymphocytes % Monocytes % Eosinophils % Basophils % Nucleated RBC % Absolute Neutrophils Absolute Lymphocytes Absolute Monocytes Absolute Eosinophils Absolute Basophils Sodium Potassium Chloride Carbon Dioxide Anion Gap BUN Creatinine Est GFR (CKD-EPI 2020) Glucose Calcium Magnesium Total Bilirubin AST ALT Alkaline Phosphatase Troponin I Total Protein Albumin TSH COVID-19 Source Nasal/Nares SARS-CoV-2 (PCR) Negative Last Vital Signs Temp 38 C H 06/24/22 17:20 Pulse 104 H 06/24/22 17:20 Resp 20 06/24/22 17:20 BP 109/64 06/24/22 17:20 Pulse Ox 93 06/24/22 17:20 PAWSS Have you Been Recently Intoxicated or Drunk Within the Last 30 days?: No Have you Ever Experienced Previous Episodes of Alcohol Withdrawal?: No Have you ever Experienced Withdrawal Seizures?: No Have you ever Experienced Delirium Tremens(DT)s?: No Have you ever undergone Alcohol Rehabilitation Treatment (i.e, inpt ot outpatient treatment programs)?: No Have you ever Experienced Blackouts?: No Have you ever Combined Alcohol with other Downers within the last 90 days?: No Have you ever Combined Alcohol with any other Substance of Abuse during the last 90 days?: No Positive Blood Alcohol level on Presentation? [PCS.BAL]: No Evidence of Increased Autonomic Activity (i.e. HR>120, tremor, sweating, agitation, nausea)?: No Result: 0
[2022-06-24] MEDS: Enoxaparin 40 MG/0.4 ML SYR SC (19:08)
[2022-06-24] MEDS: Atorvastatin 40 MG TAB PO (20:50)
[2022-06-24] MEDS: Metoprolol CR 50 MG TABCR PO (20:50)
[2022-06-24] MEDS: dilTIAZem 125 MG in Normal Saline 100 ML 15 MG IV (21:19)
[2022-06-24 21:21] LABS: Troponin I < 50 ng/L (<or=60)
[2022-06-25] VITALS (66 sets, daily range): BP systolic 91–134; BP diastolic 58–103; PULSE 64–124; RESP 12–36; TEMP 35.6–36.6; O2SAT 90–98
[2022-06-25] MEDS: dilTIAZem 125 MG in Normal Saline 100 ML 15 MG IV (05:04)
[2022-06-25] MEDS: Enoxaparin 40 MG/0.4 ML SYR SC (07:02)
[2022-06-25 07:11] LABS: Abs Immature Grans 0.02 10^3/uL (0.0-0.06); Absolute Basophil Count 0.03 10^3/uL (0.0-0.2); Absolute Eosinophil Count 0.15 10^3/uL (0.0-0.7); Absolute Lymphocyte Count 1.94 10^3/uL (1.2-3.4); Absolute Neutrophil Count 3.07 10^3/uL (1.2-6.7); Basophils % 0.5; Eosinophils % 2.4; HCT 45.6 % (40.0-50.0); HGB 15.1 g/dL (13.5-17.5); Immature Grans % 0.3; Lymphocytes % 31.2; MCH 30.8 pg (27.0-33.0); MCHC 33.1 % (32.0-36.0); MCV 93 fL (80-95); MPV 10.6 fL (8.0-11.0); Monocytes % 16.1; Neutrophils % 49.5; Platelet Count 263 10^3/uL (130-400); RDW 12.6 % (11.8-14.1); RDW-SD 43.5 fL; WBC 6.21 10^3/uL (4.4-10.8)
[2022-06-25 07:35] LABS: Anion Gap 13.5 mmol/L (3-11); BUN 12 mg/dL (7-18); CO2 25.5 mmol/L (21.0-32.0); CREATININE 0.8 mg/dL (0.70-1.30); Calcium 9.1 mg/dL (8.5-10.1); Calculated LDL 45 mg/dL (<100); Chloride 103 mmol/L (98-107); Cholesterol 105 mg/dL (<200); Estimated GFR 99.44 (mL/min/1.73m2); Glucose 129 mg/dL (74-106); HDL Cholesterol 32 mg/dL (40-60); Magnesium 1.9 mg/dL (1.8-2.4); Potassium 3.6 mmol/L (3.5-5.1); Sodium 142 mmol/L (136-145); Triglyceride 140 mg/dL (<150)
[2022-06-25] MEDS: Aspirin 81 MG CHEW PO (07:58)
[2022-06-25] MEDS: hydroCHLOROthiazide 25 MG TAB PO (07:58)
[2022-06-25] MEDS: Lisinopril 20 MG TAB 40 MG PO (07:58)
[2022-06-25] MEDS: Potassium Chloride 10 MEQ CAPCR 20 MEQ PO (07:59)
[2022-06-25] MEDS: Magnesium Gluconate 500 MG TAB PO (07:59)
[2022-06-25] MEDS: Metoprolol CR 100 MG TABCR 200 MG PO (07:59)
[2022-06-25] MEDS: Empaglifozin 25 MG TAB PO (08:22)
--- NOTE | 2022-06-25 08:55 | PGE_ITS ---
Date of Service Date of service: 06/25/22 Time of Service: 08:55 Assessment and Plan Assessment and plan (1) Atrial fibrillation with RVR: Status: Acute Assessment and plan: continue diltiazem drip, can titrate up to 20 mg/hr; currently at 15 mg/hr; I will increase his Toprol XL to 300 mg daily beginning today. I will await Dr. Borjas's exam prior to intiation of anticoagulation. Troponin I negative and he has had no exertional CP. I still think that he should have follow up stress GXT/ w/ MPI and have an updated PSG to see if his CPAP is set adequately. His [id number] is 2 putting him at high risk for CVA. He should be anticoagulated. Apixaban can reduce his risk of CVA from 3% annually down to 0.8%. he is low risk for bleeding other than his recent rectal problems. Professional time spent interviewing and examining patient, discussion of goals of care with hospital team (care management, nursing and consulting professionals) was 30 minutes. (2) Rectal pain: Status: Acute Assessment and plan: He has prn docusate and Miralax; I will make these scheduled. Dr. Borjas will evaluate him later today w/ anoscopy to see if he has a rectal tear (3) Diabetes mellitus: Assessment and plan: controlled w/ oral agents (metformin, and Jardiance). I will hold his metformin in light of his CTA today. control acute glycemia w/ SSI Qualifiers: Diabetes mellitus type: type 2 Diabetes mellitus termite control service representative insulin use: without termite control service representative use Diabetes mellitus complication status: without complication Qualified Code(s): E11.9 - Type 2 diabetes mellitus without complications (4) Hypercholesterolemia: Assessment and plan: continue his atorvastatin. needs an updated lipid profile (5) Hypertension: Assessment and plan: dc amlodipine in favor of uptitration of his Toprol XL however, if his BP goes up then we may need to resume his amlodipine albeit at lower dose. (6) MIRI (obstructive sleep apnea): Assessment and plan: cont. his CPAP. Recommend repeat titration study as outpatient to be sure his CPAP settings are adequate. Subjective Subjective Interval history since last seen: No CP or dyspnea. Still in afib @ 100 to 130. Troponin I neg. x 3 sets. Echo pending. He says rectal pain is better but still has some discomfort. I told him that I would have his surgeon see him. I spoke w/ Dr. Borjas about his symptoms. She will see him later today and perform beside anoscopy to see if he has a rectal tear from his constipation. Exam Narrative Exam Narrative: Hola is sitting up at the bedside, alert and oriented, not dyspneic Lungs: clear Heart: irregularly irregular @ slight tachycardia; no murmur Abdomen: obese, soft, nontender Rectal exam deferred as he will have exam w/ anoscopy later today Legs: no calf swelling or tenderness, he has chronic stasis dermatitis skin changes and venous varicosities Objective Last Vital Signs Temp 36.3 C L 06/25/22 07:48 Pulse 109 H 06/25/22 07:48 Resp 21 06/25/22 07:48 BP 134/103 H 06/25/22 07:48 Pulse Ox 94 06/25/22 07:48 Laboratory Results - last 24 hr 06/24/22 06/24/22 06/24/22 12:05 12:05 16:36 WBC 8.19 RBC 5.28 Hgb 16.5 Hct 48.2 MCV 91 MCH 31.3 MCHC 34.2 RDW 12.3 Plt Count 264 MPV 10.4 Immature Gran % 1.1 Neutrophils % 54.3 Lymphocytes % 27.1 Monocytes % 15.9 Eosinophils % 1.0 Basophils % 0.6 Nucleated RBC % 0.0 Absolute Neutrophils 4.45 Absolute Lymphocytes 2.22 Absolute Monocytes 1.30 H Absolute Eosinophils 0.08 Absolute Basophils 0.05 Sodium 140 Potassium 3.4 L Chloride 103 Carbon Dioxide 24.0 Anion Gap 13.0 H BUN 17 Creatinine 1.0 Est GFR (CKD-EPI 2020) 84.57 Glucose 146 H Calcium 9.6 Magnesium 1.8 Total Bilirubin 0.7 AST 28 ALT 49 Alkaline Phosphatase 63 Troponin I < 50 < 50 Total Protein 8.3 H Albumin 3.6 Triglycerides Total Cholesterol LDL Cholesterol, Calc HDL Cholesterol TSH 1.04 COVID-19 Source SARS-CoV-2 (PCR) 06/24/22 06/24/22 06/25/22 16:36 20:25 05:10 WBC RBC Hgb Hct MCV MCH MCHC RDW Plt Count MPV Immature Gran % Neutrophils % Lymphocytes % Monocytes % Eosinophils % Basophils % Nucleated RBC % Absolute Neutrophils Absolute Lymphocytes Absolute Monocytes Absolute Eosinophils Absolute Basophils Sodium 142 Potassium 3.6 Chloride 103 Carbon Dioxide 25.5 Anion Gap 13.5 H BUN 12 Creatinine 0.8 Est GFR (CKD-EPI 2020) 99.44 Glucose 129 H Calcium 9.1 Magnesium 1.9 Total Bilirubin AST ALT Alkaline Phosphatase Troponin I < 50 Total Protein Albumin Triglycerides 140 Total Cholesterol 105 LDL Cholesterol, Calc 45 HDL Cholesterol 32 L TSH COVID-19 Source Nasal/Nares SARS-CoV-2 (PCR) Negative 06/25/22 05:10 WBC 6.21 RBC 4.90 Hgb 15.1 Hct 45.6 MCV 93 MCH 30.8 MCHC 33.1 RDW 12.6 Plt Count 263 MPV 10.6 Immature Gran % 0.3 Neutrophils % 49.5 Lymphocytes % 31.2 Monocytes % 16.1 Eosinophils % 2.4 Basophils % 0.5 Nucleated RBC % 0.0 Absolute Neutrophils 3.07 Absolute Lymphocytes 1.94 Absolute Monocytes 1.00 H Absolute Eosinophils 0.15 Absolute Basophils 0.03 Sodium Potassium Chloride Carbon Dioxide Anion Gap BUN Creatinine Est GFR (CKD-EPI 2020) Glucose Calcium Magnesium Total Bilirubin AST ALT Alkaline Phosphatase Troponin I Total Protein Albumin Triglycerides Total Cholesterol LDL Cholesterol, Calc HDL Cholesterol TSH COVID-19 Source SARS-CoV-2 (PCR) PAWSS Have you Been Recently Intoxicated or Drunk Within the Last 30 days?: No Have you Ever Experienced Previous Episodes of Alcohol Withdrawal?: No Have you ever Experienced Withdrawal Seizures?: No Have you ever Experienced Delirium Tremens(DT)s?: No Have you ever undergone Alcohol Rehabilitation Treatment (i.e, inpt ot outpatient treatment programs)?: No Have you ever Experienced Blackouts?: No Have you ever Combined Alcohol with other Downers within the last 90 days?: No Have you ever Combined Alcohol with any other Substance of Abuse during the last 90 days?: No Positive Blood Alcohol level on Presentation? [PCS.BAL]: No Evidence of Increased Autonomic Activity (i.e. HR>120, tremor, sweating, agitation, nausea)?: No Result: 0
--- NOTE | 2022-06-25 09:00 | DI.US_ITS ---
APPROVED REPORT EXAM: Comprehensive 2D, Doppler, and color-flow Echocardiogram Patient Location: In-Patient Room/Bed: PGN342 Crisis Worker: Dalila Roper RDCS (AE) Indications: Atrial Fibrillation, Evaluate LV function Other Information Study Quality: Fair. Technically limited study due to body habitus. Conclusion Normal left ventricular wall thickness and chamber size. Estimated ejection fraction is 5 to 60%. W all motion is normal Right ventricle is borderline dilated with grossly normal systolic function Both atria are normal in size The aortic valve is trileaflet and mildly sclerotic, without stenosis or regurgitation Mild mitral annular calcification. Mild mitral regurgitation Normal tricuspid valve with trace regurgitation. Right ventricular systolic pressure could not be es timated Mildly dilated ascending aorta measuring 3.68 cm Wall motion Left Ventricle The left ventricle is normal size. The left ventricular systolic function is normal. The left ventric ular ejection fraction is within the normal range. There is normal left ventricular wall thickness. T here is normal LV segmental wall motion. There is no ventricular septal defect visualized. LVEF is 55 -60%. Right Ventricle Right ventricle is borderline dilated. Right ventricular systolic function is grossly normal. Atria The left atrium size is normal. The right atrium size is normal. Aortic Valve The Aortic valve is mildly sclerotic. Aortic valve is trileaflet. There is no aortic valvular stenosi s. No aortic regurgitation is present. Mitral Valve Mild mitral annular calcification. No evidence of mitral valve stenosis. Mild mitral regurgitation. Tricuspid Valve The tricuspid valve is normal in structure. There is no tricuspid valve stenosis. Trace tricuspid reg urgitation. Unable to assess PA pressure. Pulmonic Valve Pulmonic valve is not well visualized. There is no pulmonic valvular stenosis. Trace pulmonic regurgi tation. Great Vessels The aortic root is normal in size. The ascending aorta is mildly dilated. Aortic arch is not well vis ualized. IVC is normal in size and collapses >50% with inspiration. Pericardium There is no pericardial effusion. 2D Dimensions IVSD d PLAX 1.03 cm M: 0.6-1.2 LV Vol A2C d MOD 146.6 mL LVPW d PLAX 1.05 cm M: 0.6 - 1.2 LV Vol A4C d MOD 150.9 mL LVID d PLAX 5.49 cm M: 4.2 - 5.8 LA vol/ BSA A2C s A-L 33.9 mL/m2 LVDs 3.80 cm M: 2.5 - 4.0 LA vol/ BSA A4C s A-L 15.5 mL/m2 Ao Root d 3.65 cm M: 3.1 - 3.7 LA Vol/ BSA Biplane s A-L 23.7 mL/m2 RA Area A4C 23.56 cm2 LA Area A4C s MOD 17.26 cm2 RA Vol/ BSA A4C s A-L 27.6 mL/m2 LA Area A2C s MOD 26.47 cm2 Ao Asc Diam d 3.68 cm M: 2.6 - 3.4 LV EF A4C MOD 60.2 % LV EF Teichholz 57.1 % LV EF A2C MOD 55.0 % LVEF (Alaniz's) 56.68 % M: 52 - 72 LV EF Biplane MOD 56.7 % LV Volume 103.01 mL M: 62 - 150 SV 86.00 mL LV Volume Index 36.92 mL/m2 M: 34 - 74 SV Index 30.76 mL/m2 LV Vol Biplane MOD 151.7 mL FS 30.30 % M-Mode TAPSE 2.46 cm (M/F) >1.7 LV Diastology MV E' medial 0.182 (>0.07 m/s) MV E Vmax 0.98 (0.4-1.3 m/s) LV E/e MED 5.35 (<14) MV E' lateral 0.178 (>0.1 m/s) LV E/e LAT 5.50 (<14) MV E/E' medial 5.39 MV E/E' lateral 5.50 Aortic Valve LVOT Area 3.35 cm2 AoV Area Vmax 2.81 cm2 LVOT Vmax 1.27 m/s AoV Area/ BSA (Vmax) 1.01 cm2/m2 LVOT Mean Ruddy. 0.95 m/s SHANE Mean Ruddy. 2.75 cm2 LVOT Peak Grad 6.5 mmHg SHANE Mean Ruddy. Index 0.99 cm2/m2 LVOT Mean Grad 4.1 mmHg LVOT VTI 0.244 m LVOT Diam s 2.05 cm AoV Vmax 1.52 m/s Velocity Ratio 0.83 AoV Mean Ruddy. 1.16 m/s AoV Peak Grad 9.2 mmHg LVOT SV 81.79 mL AoV Mean Grad 5.9 mmHg AoV VTI 0.263 m AoV Area VTI 3.11 cm2 AoV Area/ BSA (VTI) 1.11 cm/m2 Mitral Valve MV DT 238 (160-240 msec) MV PHT 69 msec MV Area PHT 3.19 cm2 Pulmonary Valve PV Vmax 1.01 (0.5-1.5 m/s) RVOT Peak Gr. 1.44 mmHg PV Peak Grad 4.1 mmHg RVOT Mean Gr. 0.75 mmHg PV Mean Grad 1.9 mmHg RVOT VTI 0.117 m PV VTI 0.158 m RVOT Vmax 0.60 m/s
[2022-06-25] MEDS: Polyethylene Glycol 3350 17 GM PACKET PO ×2 (10:11→20:53)
[2022-06-25] MEDS: Metoprolol CR 100 MG TABCR PO (10:11)
--- NOTE | 2022-06-25 10:20 | PDOC.CMIN ---
- If Service Date Differs Date of service: 06/25/22 Time of Service: 10:24 Care Management Initial Assess REASON FOR HOSPITALIZATION:: AFIB with RVR PAST MEDICAL HISTORY/PAST SURGICAL HISTORY:: All Active Problems. Atrial fibrillation with RVR (Acute). Rectal pain (Acute). Lumbago (Acute). L5-S-1 disc and spinal stenosis; discectomy and laminectomy. Metacarpophalangeal joint pain of right hand (Acute). Microalbuminuria due to type 2 diabetes mellitus (Acute). 08/10- microalb/ creat ration 200. Skin lesion (Acute). Degenerative joint disease of left hip (Acute). Injection under fluoroscopy: 03/20/20. Osteoarthrosis (Chronic). Peripheral venous insufficiency (Acute). Obesity (Acute). Gout (Acute). Medical History. Atrial fibrillation. Diabetes mellitus (01/26/11). Difficult airway. At [facility], records unavailable because intubation too long ago. Essential hypertension (06/25/13). Hx of gout. Hypercholesterolemia. TYPE 4 HYPERLIPIDEMIA. Hypertension. Obesity, Class III, BMI 40-49.9 (morbid obesity). MIRI (obstructive sleep apnea). a. on CPAP at night. Surgical History. Colonoscopy - IV Sedation. 8 years ago-normal. DISCECTOMY. . 01/20. H/O surgical procedure. a. back surgery. b. wrist surgery. Repair of umbilical hernia (08/04/17) PREVIOUS FUNCTIONAL STATUS/SOCIAL/FAMILY SUPPORTS:: Ashwin lives in [place] with his , Natalie. They have three children who live locally, and are very supportive. 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 He and his enjoy traveling the [facility] now that they are retired. He is active and independent at baseline. CURRENT FUNCTIONAL STATUS:: Ashwin was sitting up on the edge of his bed when JOHN met with him. His Natalie was visiting. He stated that per MD, he would remain overnight, and would likely return home tomorrow, if he continues to improve. He is happy with this plan. He stated that he is very independent and does not expect to require services upon discharge. JOHN discussed his pharmacy, as he uses [facility], but is concerned that it may be closed when he discharges. He stated that he is agreeable to having paper scripts vs sending them to [facility]. CM will discuss this further with him prior to discharge. CM will continue to follow. ADVANCE DIRECTIVES:: Not on file. Has patient been provided with info about the portal/API?: Yes Did the patient sign up for the portal?: No CODE STATUS:: Full Code INSURANCE COVERAGE / FINANCIAL ISSUES:: BC/BS CURRENT HOME/COMMUNITY SERVICES/EQUIPMENT:: None PRIMARY CARE PHYSICIAN:: Imelda Salgado POTENTIAL DISCHARGE NEEDS:: Follow up appointments PATIENT/FAMILY EDUCATION NEEDS:: Review discharge instructions and limitations, discussion of self care needs including ask me three. ANTICIPATED BARRIERS TO DISCHARGE:: None identified. TRANSPORTATION:: Via private vehicle by family. PLAN:: Anticipate Ashwin will return home when medically cleared. His will drive him home via private vehicle. He will follow up with his PCP and discharge plan of care. CM will continue to follow.
--- NOTE | 2022-06-25 12:50 | SCONE_ITS ---
Date of service: 06/25/22 Time of Service: 12:50 Assessment and Plan Assessment and plan (1) Atrial fibrillation with RVR: Status: Acute (2) Internal hemorrhoid, bleeding: Status: Acute Assessment and plan: - Continue Metamucil daily with large glass of water. -6 to 12 ounces of water daily -High-fiber diet and regular exercise avoid refined sugars/white flour. -We will try hydrocortisone suppositories daily for 2 weeks. -He should be stable for anticoagulation. Monitor closely for further bleeding. Hemoglobin is normal at this time in the amount of bleeding appears to be minimal. -Patient is interested in having hemorrhoid banding. However because of the new diagnosis of A. fib we cannot do this for 6 months. He can follow-up with us after 6 months time for consideration of banding. History of Present Illness Narrative: Pt was admitted to the hospital for RVR/ new onset uncontrolled A-fib. Patient has been having issues with rectal bleeding. He and his have been traveling extensively. He has not been following his regular diet/regimen. He normally takes Metamucil daily. He did admit that he did have a hard stool and straining prior to the onset of rectal bleeding. He has a known history of fissures. His hemoglobin is normal.(Please see labs in [facility]. Patient denies any unexplained weight loss. There is no family history of colon cancer. He did have a colonoscopy in 2020 which was normal. He currently is comfortable. He is not having any chest pain or shortness of breath. He is on diltiazem for his heart rate which is still irregular but more controlled. He is having no nausea vomiting. He is tolerating regular diet. With no new on set A. fib, he has need to go on blood thinners and we are evaluating him for rectal bleeding. Review of Systems All systems reviewed & are unremarkable except as noted in HPI and below PFSH All Active Problems (Updated 06/26/22 @ 22:52 by Keke Monique DO) Internal hemorrhoid, bleeding (Acute) Hypokalemia (Acute) Medication monitoring encounter (Acute) Atrial fibrillation with RVR (Acute) Rectal pain (Acute) Lumbago (Acute) L5-S-1 disc and spinal stenosis; discectomy and laminectomy Metacarpophalangeal joint pain of right hand (Acute) Microalbuminuria due to type 2 diabetes mellitus (Acute) 08/10- microalb/ creat ration 200 Skin lesion (Acute) Degenerative joint disease of left hip (Acute) Injection under fluoroscopy: 03/20/20 Osteoarthrosis (Chronic) Peripheral venous insufficiency (Acute) Obesity (Acute) Gout (Acute) Medical History Atrial fibrillation Diabetes mellitus (01/26/11) Difficult airway [place] [facility] unavailable because intubation too long ago Essential hypertension (06/25/13) Hx of gout Hypercholesterolemia TYPE 4 HYPERLIPIDEMIA Hypertension Obesity, Class III, BMI 40-49.9 (morbid obesity) MIRI (obstructive sleep apnea) a. on CPAP at night Surgical History Colonoscopy - IV Sedation 8 years ago-normal DISCECTOMY 01/20 H/O surgical procedure a. back surgery b. wrist surgery Repair of umbilical hernia (08/04/17) Family History Mother , 84 Essential hypertension Heart disease Father , 80 Diabetes Essential hypertension Personal history of malignant neoplasm BLADDER.MELANOMA Depression Heart disease Stroke Brother Essential hypertension Maternal Grandfather , 93 Diabetes Alcohol abuse Heart disease Hyperlipidemia Paternal Grandfather , 71 Alcohol abuse Essential hypertension Heart disease Maternal Grandmother , 70 Diabetes Essential hypertension Heart disease Stroke Grandmother , 84 Alcohol abuse Heart disease Son Essential hypertension Social History Smoking/Tobacco Use Status: Never Second Hand Exposure: Yes Smoking risk assessment performed?: Yes Alcohol Intake: current Alcohol Intake frequency: a few times a month Alcohol type: beer and wine Drug use: Never Substance use type: does not use Household members: spouse and children Housing: house Communication Needs: None Do you need help understanding health information?: Never Sexually active: Yes Do you think of yourself as: straight/heterosexual Current gender identity: male What is your relationship status?: How often do you talk on the phone with friends or family?: three or more times per week How often do you get together with friends or relatives?: once per week Do you belong to any clubs or organized social groups?: no Panel score (0-1 are the most socially isolated patients): 2 What type of physical activity do you participate in: walking and bicycling Duration: 45-60 minutes/day Frequency: 5-6 times per week Radha/Buddhism: [employer] Special radha needs: No Seatbelt use: sometimes Helmet use: Yes Helmet use: always Drive intox or ride w/intox straddle bug driver: No Do you feel safe at home: Yes Do you feel safe in your relationship?: Yes Exam GI Inspection: large pannus and obesity Palpation: soft and nontender Auscultation: normal bowel sounds Rectal Exam: visual inspection normal, normal sphincter tone and hemorrhoids (internal hemorrhoids. no fissure Grade I. ) Other: Internal organs and hernias would not be palpable secondary to BMI There are grade 1 internal hemorrhoids. At the 7 o'clock position, there is some irritation/ulceration. There are no fissures. There is no active b leeding. Speculum exam was done. There are no other masses or abnormalities of the rectum. Upon removing the scope there is some bright red blood noted. It is minimal Results Last Vital Signs Temp 36.1 C L 06/25/22 12:04 Pulse 96 H 06/25/22 12:04 Resp 21 06/25/22 12:04 BP 113/71 06/25/22 12:04 Pulse Ox 93 06/25/22 12:04 Labs Result diagrams: 06/25/22 05:10 06/26/22 06:30 Labs: Laboratory Results - last 24 hr 06/24/22 06/24/22 06/24/22 16:36 16:36 20:25 WBC RBC Hgb Hct MCV MCH MCHC RDW Plt Count MPV Immature Gran % Neutrophils % Lymphocytes % Monocytes % Eosinophils % Basophils % Nucleated RBC % Absolute Neutrophils Absolute Lymphocytes Absolute Monocytes Absolute Eosinophils Absolute Basophils Sodium Potassium Chloride Carbon Dioxide Anion Gap BUN Creatinine Est GFR (CKD-EPI 2020) Glucose Calcium Magnesium Troponin I < 50 < 50 Triglycerides Total Cholesterol LDL Cholesterol, Calc HDL Cholesterol COVID-19 Source Nasal/Nares SARS-CoV-2 (PCR) Negative 06/25/22 06/25/22 05:10 05:10 WBC 6.21 RBC 4.90 Hgb 15.1 Hct 45.6 MCV 93 MCH 30.8 MCHC 33.1 RDW 12.6 Plt Count 263 MPV 10.6 Immature Gran % 0.3 Neutrophils % 49.5 Lymphocytes % 31.2 Monocytes % 16.1 Eosinophils % 2.4 Basophils % 0.5 Nucleated RBC % 0.0 Absolute Neutrophils 3.07 Absolute Lymphocytes 1.94 Absolute Monocytes 1.00 H Absolute Eosinophils 0.15 Absolute Basophils 0.03 Sodium 142 Potassium 3.6 Chloride 103 Carbon Dioxide 25.5 Anion Gap 13.5 H BUN 12 Creatinine 0.8 Est GFR (CKD-EPI 2020) 99.44 Glucose 129 H Calcium 9.1 Magnesium 1.9 Troponin I Triglycerides 140 Total Cholesterol 105 LDL Cholesterol, Calc 45 HDL Cholesterol 32 L COVID-19 Source SARS-CoV-2 (PCR)
[2022-06-25] MEDS: Hydrocortisone 25 MG SUPP PR (13:19)
--- NOTE | 2022-06-25 13:19 | NUR.NOTE ---
Hydrocortisone suppository order was just ordered. RN calls pharmacy about same. Pharmacist says she cannot order a now dose but same is what Dr. Monique would like and hence this medication which was just ordered and being given now. Nursing Note:
[2022-06-25] MEDS: dilTIAZem 125 MG in Normal Saline 100 ML IV (14:30)
[2022-06-25] MEDS: Apixaban 5 MG TAB PO (20:52)
[2022-06-25] MEDS: Psyllium PKT 1 EACH PO (20:53)
[2022-06-25] MEDS: Atorvastatin 40 MG TAB PO (20:53)
[2022-06-26] VITALS (40 sets, daily range): BP systolic 87–135; BP diastolic 58–87; PULSE 49–118; RESP 4–28; TEMP 35.5–35.7; O2SAT 88–96
[2022-06-26] MEDS: Hydrocortisone 25 MG SUPP PR ×2 (00:32→11:09)
[2022-06-26 06:29] LABS: Anion Gap 11.6 mmol/L (3-11); BUN 13 mg/dL (7-18); CO2 25.4 mmol/L (21.0-32.0); CREATININE 0.9 mg/dL (0.70-1.30); Calcium 9.1 mg/dL (8.5-10.1); Chloride 104 mmol/L (98-107); Estimated GFR 95.97 (mL/min/1.73m2); Glucose 153 mg/dL (74-106); Potassium 3.9 mmol/L (3.5-5.1); Sodium 141 mmol/L (136-145)
[2022-06-26] MEDS: Apixaban 5 MG TAB PO (09:18)
[2022-06-26] MEDS: Lisinopril 20 MG TAB 40 MG PO (09:19)
[2022-06-26] MEDS: Magnesium Gluconate 500 MG TAB PO (09:19)
[2022-06-26] MEDS: hydroCHLOROthiazide 25 MG TAB PO (09:19)
[2022-06-26] MEDS: Aspirin 81 MG CHEW PO (09:19)
[2022-06-26] MEDS: Empaglifozin 25 MG TAB PO (09:19)
[2022-06-26] MEDS: Metoprolol CR 100 MG TABCR 300 MG PO (09:20)
[2022-06-26] MEDS: Potassium Chloride 10 MEQ CAPCR 20 MEQ PO (09:21)
[2022-06-26] MEDS: Psyllium PKT 1 EACH PO (09:22)
--- NOTE | 2022-06-26 10:34 | DSE_ITS ---
Date of service: 06/26/22 Time of Service: 10:34 DS: Diagnosis Discharge Diagnosis (1) Atrial fibrillation with RVR: Status: Acute Asessment and Plan: patient presented to the ED from [facility] after being evaluated for rectal pain and was found to have asymptomatic rapid afib w/ HR in the 130's. He was referred to the ED. He was given bolus and drip of cardiazem. He was admitted to the ICU where serial troponin I levels were monitored and came back negative. Echo was done which showed normal LV size and function and borderline enlarged RV but normal RV function. His ascending aorta is midly dilated. TSH was normal. Patient's Toprol XL was titrated from 200 mg/day to 300 mg/d and will be increased to 400 mg/day. He was begun on Apixaban 5 mg bid. (2) Rectal pain: Status: Acute Asessment and Plan: Patient was seen by Dr. Monique from surgery and anoscopy revealed hemorrhoids which was treated w/ Anusol HC rectal suppositories which helped immensely. (3) Diabetes mellitus: Asessment and Plan: no change to his Jardiance and Metformin (4) Hypercholesterolemia: Asessment and Plan: no change to his atorvastatin (5) Hypertension: Asessment and Plan: amlodipine was stopped to allow enough BP to titrate his Toprol XL dose. However patient was told to hang on to his amlodipine in the event that his BP rises over 140 then he should resume his amlodipine. He will remain on his HCTZ and his lisinopril. (6) MIRI (obstructive sleep apnea): (7) Hypokalemia: Status: Acute Asessment and Plan: patient presented w/ K+ of 3.4 which was corrected to 3.9 and he was put on oral supplementation. He is to get repeat BMP in one week. Magnesium level was normal at 2.0 Discharge Plan Disposition Patient Disposition: HOME Condition: Improving Discharge Details Reason For Visit: Afib w RVR Admit Date/Time: 06/24/22 16:16 Admit Provider: Meir Tejeda Attending Provider: Meir Tejeda Primary Care Provider: Imelda Salgado Home Meds and New Rx's Prescriptions: New Eliquis 5 mg tablet 5 mg PO BID Qty: 60 0RF polyethylene glycol 3350 17 gram Powder In Packet 17 g PO HS Qty: 30 0RF hydrocortisone acetate 25 mg Suppository 25 mg [place] BID@1000,2200 Qty: 60 0RF Continued metformin 1,000 mg tablet 1,000 mg PO BID Qty: 180 4RF atorvastatin 40 mg tablet 40 mg PO QPM Qty: 90 4RF lisinopril 40 mg tablet 40 mg PO DAILY Qty: 90 4RF hydrochlorothiazide 25 mg tablet 25 mg PO DAILY Qty: 90 4RF Jardiance 25 mg tablet 25 mg PO DAILY Qty: 90 4RF Tart You 1 EACH capsule 2 ea PO DAILY Qty: 180 Rx Instructions: For gout prevention Changed metoprolol succinate 200 mg tablet extended release 24 hr 400 mg PO DAILY Qty: 60 1RF Discontinued amlodipine 10 mg tablet 10 mg PO DAILY Qty: 90 4RF aspirin [Aspirin Low-Strength] 81 MG tablet,chewable 2 tab PO DAILY Discharge Instructions Instructions: Apixaban (By mouth), A-fib (Atrial Fibrillation) (DC), High Fiber Diet (DC), Cardioversion (DC) Additional Instructions: You were admitted for treatment of new onset rapid atrial fibrillation. You were initially treated w/ intravenous diltiazem while your Toprol XL dose was titrated. You were also put on apixaban, a direct acting oral anticoagulant. This is being used to prevent your atrial fibrillation from causing a blood clot which can lead to strokes. Your were not cardioverted here at [facility] due to lack of ability to perform a trans-esophageal echocardiogram to evaluate for any pre- existing clots in the heart. However, you had a trans-thoracic echocardiogram (ultrasound of your heart) which shows that your heart has normal pumping abilities and that you do not have heart damage, although the right ventricle of your heart may be slightly enlarged (probably d/t sleep apnea). Continue to wear your CPAP for your sleep apnea but discuss w/ your PCP about getting a new sleep study w/ titration to assess whether or not your CPAP needs adjusted. While your heart enzymes (troponin levels) were normal and your echocardiogram showed no damage, you should also discusss w/ your PCP about whether or not to have a stress test to rule out occult (hidden) ischemic heart disease (coronary artery disease). Ischemic heart disease and sleep apnea are two major causes for atrial fibrillation (that along w/ chronic lung disease such as COPD). Your thyroid level was checked and is normal. We are referring you to a local lean manufacturing coordinator here at [facility], Dr. Kaye Larios as well as to an EP (electrophysiology) lean manufacturing coordinator at [facility]. We have put you on a rectal steroid suppository to help the hemorrhoids heal and you should follow up w/ Dr. Monique or Dr. Borjas about your hemorrhoids. Please get follow up labs next week to re-assess your electrolytes. Referrals: Kaye Larios MD [ [facility] STAFF PHYSICIAN] - (new referral for afib) Sarkis Matias MD [ CONSULTING PHYSICIAN] - (new referral for new afib, consider [facility] and [facility]) Marion Borjas MD [ [facility] STAFF PHYSICIAN] - (call the office for follow up regarding hemorrhoids and rectal pain) Activity:: Activity as Tolerated Equipment/Supplies:: No Equipment Needed Diet:: Carb Counting Discharge Orders Discharge Orders: Discharge Order (Routine); Ordered 06/26/22 Ordered By: Meir Tejeda Other Ambulatory Orders: Basic Metabolic Panel (Routine) Timeframe: 1 Week Facility: [facility] - Location: Laboratory Outpatient - [facility] Ordered By: Meir Tejeda 14 Day [employer] Machine Feeder (Routine) Timeframe: 1 Week Facility: [facility] - Location: Respiratory Therapy Ordered By: Meir Tejeda DS: Summary Time Spent with Patient providing and/or coordinating discharge services: Greater than 30 minutes Specific discharge activities: 35 Status at Discharge Functional status at discharge: independent ambulation Overall status at discharge: patient is back to baseline Mental Status: mental status grossly normal Speech and Movement: speech and movement normal Mood: congruent mood Affect: normal affect Exam Narrative Exam Narrative: Hola is sitting up at the bedside, talking w/ his ; He denies any CP or dyspnea or palpitations Lungs: clear Heart: irregularly irregular w/ slight tachycardia Legs: no pitting edema; varicose veins and stasis dermatitis Psych Mental Status: mental status grossly normal Speech and Movement: speech and movement normal Mood: congruent mood Affect: normal affect DS: Data Vitals/I&O Vitals and I&O: Vital Signs Temperature 35.5 C L 06/26/22 09:35 Temperature Source Temporal Artery Scan 06/26/22 09:35 Pulse 105 H 06/26/22 09:35 Pulse 101 H 06/26/22 09:30 Respiratory Rate 22 06/26/22 09:35 Respiratory Effort 06/26/22 09:35 Respiratory Depth Normal 06/26/22 09:35 Respiratory Pattern Normal 06/26/22 09:35 Blood Pressure 135/87 06/26/22 09:35 Blood Pressure Mean 103 06/26/22 09:35 Blood Pressure Position Sitting 06/26/22 09:35 Pulse Oximetry 94 06/26/22 09:35 Oxygen Delivery Method Room Air 06/26/22 09:35 Oxygen Flow Rate 0 06/26/22 09:35 Fraction of Inspired Oxygen (FIO2) 21 06/26/22 08:07 Pain Level 0 06/26/22 09:35 Intake & Output 06/25/22 06/25/22 06/26/22 11:59 23:59 11:59 Intake Total 290.75 / 587.250 296.500 / 587.250 200 / 200 Output Total 1150 / 2375 1225 / 2375 500 / 500 Balance -859.25 / -1787.750 -928.500 / -1787.750 -300 / -300 Weight 170 kg Intake: IV 170.75 / 227.250 56.500 / 227.250 Oral 120 / 360 240 / 360 200 / 200 Output: Urine 1150 / 2375 1225 / 2375 500 / 500 Other: Urine Color Light Ruthie Yellow Yellow Urine Appearance Clear Clear Clear Urine Odor None Comment voiding in urinal voiding in urinal Stool Size Moderate Stool Characteristics Formed Hard Voiding Methods Urinal Urinal Data Completed and Pending Labs on day of discharge: Labs from last 24 hours 06/26/22 06:30 Sodium 141 Potassium 3.9 Chloride 104 Carbon Dioxide 25.4 Anion Gap 11.6 H BUN 13 Creatinine 0.9 Est GFR (CKD-EPI 2020) 95.97 Glucose 153 H Calcium 9.1 Magnesium 2.0 Additional Comments Additional comments: Review of his telemetry w/ ICU nurse reveals persistent afib w/ generally good controlled rates in the 90's to low 100's, up to 115 w/ activity PFSH All Active Problems Hypokalemia (Acute) Medication monitoring encounter (Acute) Atrial fibrillation with RVR (Acute) Rectal pain (Acute) Lumbago (Acute) L5-S-1 disc and spinal stenosis; discectomy and laminectomy Metacarpophalangeal joint pain of right hand (Acute) Microalbuminuria due to type 2 diabetes mellitus (Acute) 08/10- microalb/ creat ration 200 Skin lesion (Acute) Degenerative joint disease of left hip (Acute) Injection under fluoroscopy: 03/20/20 Osteoarthrosis (Chronic) Peripheral venous insufficiency (Acute) Obesity (Acute) Gout (Acute) Medical History Atrial fibrillation Diabetes mellitus (01/26/11) Difficult airway At [facility] [place], records unavailable because intubation too long ago Essential hypertension (06/25/13) Hx of gout Hypercholesterolemia TYPE 4 HYPERLIPIDEMIA Hypertension Obesity, Class III, BMI 40-49.9 (morbid obesity) MIRI (obstructive sleep apnea) a. on CPAP at night Surgical History Colonoscopy - IV Sedation 8 years ago-normal DISCECTOMY 01/20 H/O surgical procedure a. back surgery b. wrist surgery Repair of umbilical hernia (08/04/17) Family History Mother , 84 Essential hypertension Heart disease Father , 80 Diabetes Essential hypertension Personal history of malignant neoplasm BLADDER.MELANOMA Depression Heart disease Stroke Brother Essential hypertension Maternal Grandfather , 93 Diabetes Alcohol abuse Heart disease Hyperlipidemia Paternal Grandfather , 71 Alcohol abuse Essential hypertension Heart disease Maternal Grandmother , 70 Diabetes Essential hypertension Heart disease Stroke Grandmother , 84 Alcohol abuse Heart disease Son Essential hypertension Social History Smoking/Tobacco Use Status: Never Second Hand Exposure: Yes Smoking risk assessment performed?: Yes Alcohol Intake: current Alcohol Intake frequency: a few times a month Alcohol type: beer and wine Drug use: Never Substance use type: does not use Household members: spouse and children Housing: house Communication Needs: None Do you need help understanding health information?: Never Sexually active: Yes Do you think of yourself as: straight/heterosexual Current gender identity: male What is your relationship status?: How often do you talk on the phone with friends or family?: three or more times per week How often do you get together with friends or relatives?: once per week Do you belong to any clubs or organized social groups?: no Panel score (0-1 are the most socially isolated patients): 2 What type of physical activity do you participate in: walking and bicycling Duration: 45-60 minutes/day Frequency: 5-6 times per week Radha/Adventism: Sikhism Special radha needs: No Seatbelt use: sometimes Helmet use: Yes Helmet use: always Drive intox or ride 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
[2022-06-26] MEDS: Metoprolol CR 50 MG TABCR PO (11:09)
--- NOTE | 2022-06-26 11:25 | NUR.NOTE ---
RN ROLANDAPs respiratory therapist for guidance on setting patient up with a halter monitor.Nursing Note:
--- NOTE | 2022-06-26 11:35 | PDOC.CMDIS ---
- If Service Date Differs Date of service: 06/26/22 Time of Service: 11:35 LACE Index Scoring Tool - Questions: Length of Stay (in days): 2 Acuity (Admit via E.D.?): Yes Comorbidities: Diabetes w/o Complication E.D. Visits: 1 - Answers: Total Score: 7 Risk of Readmission: Low Risk Care Management Discharge Reason for Hospitalization: AFIB with RVR Discharge Plan: Ashwin will return home today with no new services. He has a new prescription for Eliquis, CM provided a free 30 day trial coupon. His prescriptions were printed out for him to bring to a pharmacy of his choice, as his regular pharmacy ([facility]) is closed on the weekend. His will drive him home via private vehicle. He will follow up with his PCP and discharge plan of care. He is happy to be going home. Patient/Family Education Needs: Review discharge instructions and limitations, discussion of self care needs including ask me three.
--- NOTE | 2022-06-26 11:59 | NUR.NOTE ---
Patient's feet are finished soaking and are now clean. Patient layed down in bed and heels are elevated now on a pillow.Nursing Note:
--- NOTE | 2022-06-26 13:25 | NUR.NOTE ---
RN faxes bette monitor order to cardiology specialty clinic with patient's contact information. Patient given Atrial fibrillation education and medication education.Nursing Note:
== END 2022-06-26 13:40 | disposition home or self-care (01) | DRG 309 ==
LOC: ER 16:51 → ICU 06-25 13:23
PROVIDERS: Admitting Provider Internal Medicine; Emergency Provider Emergency Medicine; PCP Nurse Practitioner; Visit Provider Internal Medicine
DX: I48.91 Unspecified atrial fibrillation (principal); Z68.43 Body mass index [BMI] 50.0-59.9, adult; E11.9 Type 2 diabetes mellitus without complications; K62.89 Other specified diseases of anus and rectum; I87.2 Venous insufficiency (chronic) (peripheral); I10 Essential (primary) hypertension; E78.5 Hyperlipidemia, unspecified; E78.00 Pure hypercholesterolemia, unspecified; E87.6 Hypokalemia; E66.01 Morbid (severe) obesity due to excess calories; G47.33 Obstructive sleep apnea (adult) (pediatric); K64.8 Other hemorrhoids; Z79.84 Long term (current) use of oral hypoglycemic drugs
CPT/HCPCS: 80048; 80053; 80061; 87635; 93005; 96361; 96365; 96366; 96375; 96376; 99291; J1650; 71045; 74177; 83735; 84443; 84484; 85025; 93010; 93306; 99232; 99239; J2270

== ENCOUNTER 2022-07-02 01:55 | Outpatient (CLI) | payer BC, SELFPAY ==
[2022-07-02 07:47] LABS: Hemoglobin A1C 7.2 % (<5.7)
[2022-07-02 08:42] LABS: Anion Gap 11.1 mmol/L (3-11); BUN 16 mg/dL (7-18); CO2 24.9 mmol/L (21.0-32.0); CREATININE 1.1 mg/dL (0.70-1.30); Calcium 9.4 mg/dL (8.5-10.1); Chloride 102 mmol/L (98-107); Estimated GFR 75.43 (mL/min/1.73m2); Glucose 153 mg/dL (74-106); Potassium 4.4 mmol/L (3.5-5.1); Sodium 138 mmol/L (136-145)
[2022-07-02 08:43] LABS: COMMENT (LAB VIEW ONLY) 127.36 mg/dL; Microalb ug/mg Crea 35.2 ug/mg Cr
[2022-07-02 08:45] LABS: Calculated LDL 38 mg/dL (<100); Cholesterol 114 mg/dL (<200); HDL Cholesterol 41 mg/dL (40-60); Triglyceride 178 mg/dL (<150)
== END 2022-07-02 01:56 | disposition home or self-care (01) ==
LOC: LBO 01:56
PROVIDERS: Internal Medicine; PCP Nurse Practitioner Family; Visit Provider Nurse Practitioner
DX: E11.29 Type 2 diabetes mellitus with other diabetic kidney complication (principal); I10 Essential (primary) hypertension; E78.00 Pure hypercholesterolemia, unspecified; E87.8 Other disorders of electrolyte and fluid balance, not elsewhere classified; R80.9 Proteinuria, unspecified; I48.91 Unspecified atrial fibrillation
CPT/HCPCS: 36415; 80048; 80061; 82043; 82570; 83036

== ENCOUNTER 2023-10-07 02:46 | Outpatient (CLI) | payer BC, SELFPAY ==
[2023-10-07 09:32] LABS: HCT 49.6 % (40.0-50.0); HGB 16.7 g/dL (13.5-17.5); MCH 31.6 pg (27.0-33.0); MCHC 33.7 % (32.0-36.0); MCV 94 fL (80-95); MPV 11.1 fL (8.0-11.0); Platelet Count 208 10^3/uL (130-400); RBC 5.29 10^6/uL (4.36-5.78); RDW 12.7 % (11.8-14.1); RDW-SD 43.6 fL; WBC 8.67 10^3/uL (4.4-10.8)
[2023-10-07 09:49] LABS: Hemoglobin A1C 6.6 % (<5.7)
[2023-10-07 10:12] LABS: Anion Gap 11.8 mmol/L (3-11); BUN 25 mg/dL (7-18); CO2 26.2 mmol/L (21.0-32.0); CREATININE 1.2 mg/dL (0.70-1.30); Calcium 9.9 mg/dL (8.5-10.1); Calculated LDL 48 mg/dL (<100); Chloride 103 mmol/L (98-107); Cholesterol 111 mg/dL (<200); Estimated GFR 67.53 (mL/min/1.73m2); Glucose 157 mg/dL (74-106); HDL Cholesterol 38 mg/dL (40-60); Potassium 4.5 mmol/L (3.5-5.1); Sodium 141 mmol/L (136-145); Triglyceride 126 mg/dL (<150)
== END 2023-10-07 02:47 | disposition home or self-care (01) ==
PROVIDERS: PCP Nurse Practitioner Family; Visit Provider Nurse Practitioner Family
DX: Z00.00 Encounter for general adult medical examination without abnormal findings (principal); E66.9 Obesity, unspecified; I48.91 Unspecified atrial fibrillation; E87.6 Hypokalemia; E11.9 Type 2 diabetes mellitus without complications
CPT/HCPCS: 36415; 80048; 80061; 85027; 83036

== ENCOUNTER 2024-01-25 10:20 | Outpatient (CLI) | payer BC, SELFPAY ==
--- NOTE | 2024-01-25 10:15 | RT.EKG_ITS ---
APPROVED REPORT Exam: Resting ECG Reason for Exam: afib Patient Location: O HR:101 bpm ECG Measurements Heart Rate 101 AXIS NC [id number] P [id number] QRSd 101 QRS -12 QT 381 T 21 QTc 494 Conclusion Atrial fibrillation...? atrial activity Low voltage, precordial leads...precordial leads <1.0mV RSR' in V1 or V2, Borderline prolonged QT
== END 2024-01-25 10:21 | disposition home or self-care (01) ==
LOC: DI.CARD 10:21
PROVIDERS: PCP Nurse Practitioner Family; Visit Provider Internal Medicine Cardiovascular Disease
DX: I48.91 Unspecified atrial fibrillation (principal)
CPT/HCPCS: 93010

== ENCOUNTER 2024-02-10 01:49 | Outpatient (CLI) | payer BC, SELFPAY ==
[2024-02-10 13:57] LABS: ALT 27 U/L (16-63); AST 18 U/L (15-37); Alkaline Phosphatase 47 U/L (46-116); BUN 22 mg/dL (7-18); Bilirubin, Total 0.94 mg/dL (0.2-1.0); CREATININE 1.1 mg/dL (0.70-1.30); Calcium 9.7 mg/dL (8.5-10.1); Chloride 104 mmol/L (98-107); Estimated GFR 74.96 (mL/min/1.73m2); Glucose 119 mg/dL (74-106); Potassium 4.4 mmol/L (3.5-5.1); Sodium 140 mmol/L (136-145)
== END 2024-02-10 01:50 | disposition home or self-care (01) ==
LOC: LBO 01:49
PROVIDERS: Internal Medicine Cardiovascular Disease; PCP Nurse Practitioner Family; Visit Provider Nurse Practitioner Family
DX: E11.9 Type 2 diabetes mellitus without complications (principal); I10 Essential (primary) hypertension; I48.91 Unspecified atrial fibrillation; Z51.81 Encounter for therapeutic drug level monitoring
CPT/HCPCS: 36415; 80053; 84443

== ENCOUNTER 2024-04-22 10:57 | Emergency (ER) | payer BC, SELFPAY ==
[2024-04-22 11:02] VITALS: BP 141/95; PULSE 103; RESP 16; TEMP 36.7; O2SAT 95
--- NOTE | 2024-04-22 11:12 | ED.GENADUL_ITS ---
Discharge Plan Disposition Patient Disposition: Home Condition: Stable Discharge Details Clinical Impression: Leg wound, right Primary Care Provider: Angelina Bowen ED Provider: Brandon Clarke Home Meds and New Rx's Prescriptions: New amoxicillin 875 mg tablet 875 mg PO BID 7 Days Qty: 14 0RF amoxicillin-pot clavulanate 875-125 mg tablet 1 tab PO BID Qty: 14 0RF Continued Eliquis 5 mg tablet 5 mg PO BID Qty: 180 3RF polyethylene glycol 3350 17 gram powder in packet 17 g PO HS Qty: 30 0RF Tart You 1 EACH capsule 2 ea PO DAILY Qty: 180 Rx Instructions: For gout prevention hydrochlorothiazide 25 mg tablet 25 mg PO DAILY Qty: 90 4RF atorvastatin 20 mg tablet 20 mg PO QPM Qty: 90 3RF Jardiance 25 mg tablet 25 mg PO DAILY Qty: 90 4RF lisinopril 40 mg tablet 40 mg PO DAILY Qty: 90 4RF metformin 1,000 mg tablet 1,000 mg PO BID Qty: 180 4RF metoprolol succinate 50 mg tablet extended release 24 hr 25 mg PO BID Patient Comments: TAKE ONE TABLET BY MOUTH EVERY DAY amiodarone 200 mg tablet 200 mg PO DAILY Discharge Instructions Additional Instructions: I am placing you on an antibiotic to help prevent an infection or any worsening infection If wounds are not healed in a week follow-up with your primary care provider If you feel more ill or develop new symptoms such as severe pain or fevers return to the emergency department for reevaluation HPI General Mode of arrival: ambulatory . Date/Time Provider Initiated Documentation: 04/22/24 11:03 . Limitations to Documentation: no limitations . Information obtained by: patient . History of Present Illness 63 year old M presents to the emergency department with the chief complaint of right leg wound, described as mild, Patient started experiencing this day(s) (2) and it has been constant. No relieving factors improve symptom(s), No exacerbating factors reported . Patient notes no other symptoms.; denies fever/chills. Patient did receive the following treatments prior to arrival, none Related Data Home Medications ?Medication ?Instructions ?Recorded ?Confirmed vit C 30 mg-s.you 250 mg-celery 2 ea PO DAILY #180 caps 12/24/14 04/22/24 seed 75 mg-grape seed extrt capsule (Tart You) polyethylene glycol 3350 17 gram 17 g PO HS #30 ea 07/06/22 04/22/24 oral powder packet hydrochlorothiazide 25 mg tablet 25 mg PO DAILY #90 tabs 07/26/23 04/22/24 atorvastatin 20 mg tablet 20 mg PO QPM #90 tabs 11/07/23 04/22/24 empagliflozin 25 mg tablet 25 mg PO DAILY #90 tabs 11/07/23 04/22/24 (Jardiance) lisinopril 40 mg tablet 40 mg PO DAILY #90 tabs 11/07/23 04/22/24 metformin 1,000 mg tablet 1,000 mg PO BID #180 tabs 11/07/23 04/22/24 metoprolol succinate 50 mg 25 mg PO BID 01/25/24 04/22/24 tablet,extended release 24 hr apixaban 5 mg tablet (Eliquis) 5 mg PO BID #180 tabs 01/30/24 04/22/24 amiodarone 200 mg tablet 200 mg PO DAILY As part of Afib 04/22/24 04/22/24 treatment amoxicillin 875 mg tablet 875 mg PO BID 7 days #14 tabs 04/22/24 amoxicillin 875 mg-potassium 1 tab PO BID #14 tabs 04/22/24 clavulanate 125 mg tablet Previous Rx's ?Medication ?Instructions ?Recorded polyethylene glycol 3350 17 gram 17 g PO HS #30 ea 07/06/22 oral powder packet hydrochlorothiazide 25 mg tablet 25 mg PO DAILY #90 tabs 07/26/23 atorvastatin 20 mg tablet 20 mg PO QPM #90 tabs 11/07/23 empagliflozin 25 mg tablet 25 mg PO DAILY #90 tabs 11/07/23 (Jardiance) lisinopril 40 mg tablet 40 mg PO DAILY #90 tabs 11/07/23 metformin 1,000 mg tablet 1,000 mg PO BID #180 tabs 11/07/23 apixaban 5 mg tablet (Eliquis) 5 mg PO BID #180 tabs 01/30/24 amoxicillin 875 mg tablet 875 mg PO BID 7 days #14 tabs 04/22/24 amoxicillin 875 mg-potassium 1 tab PO BID #14 tabs 04/22/24 clavulanate 125 mg tablet Allergies Allergy/AdvReac Type Severity Reaction Status Date / Time sulfamethoxazole (From AdvReac Intermediate Headache Verified 04/22/24 11:04 Bactrim) and stiff neck trimethoprim (From Bactrim) AdvReac Intermediate Headache Verified 04/22/24 11:04 and stiff neck General Stated Complaint: Cellulitis YUKO: 4 Review of Systems All systems reviewed & are unremarkable except as noted in HPI and below Constitutional Constitutional: Denies chills, Denies fever(s) and Denies weakness Cardiovascular Cardiovascular: Denies chest pain and Denies dyspnea Respiratory Respiratory: Denies cough and Denies dyspnea Gastrointestinal Gastrointestinal: Denies abdominal pain, Denies nausea and Denies vomiting Musculoskeletal Musculoskeletal: Denies joint swelling Integumentary/Breasts Skin/Breast: Reports wounds Neurologic Neurologic: Denies weakness Exam Const General: no acute distress Orientation: alert HENMT Head: normal to inspection Ears: external ears normal General nose exam: external nose normal Mouth: moist mucous membranes Eyes General: appearance normal, both eyes and all related structures Neck Neck: normal visual inspection Resp Effort & Inspection: normal respiratory effort and able to speak in complete sentences Cardio Rate: regular rate Skin General skin exam: no rashes or lesions noted Neuro General: patient alert and patient oriented x3 Extrem General: full ROM and capillary refill normal Psych Mental Status: mental status grossly normal Course Vital Signs Vital signs: Vital Signs Temperature 36.7 C 04/22/24 11:02 Pulse 103 H 04/22/24 11:02 Respiratory Rate 16 04/22/24 11:02 Blood Pressure 141/95 H 04/22/24 11:02 Pulse Oximetry 95 04/22/24 11:02 Temperature 36.7 C 04/22/24 11:02 Temperature Source Oral 04/22/24 11:02 Pulse 103 H 04/22/24 11:02 Respiratory Rate 16 04/22/24 11:02 Respiratory Effort Normal, Non-Labored 04/22/24 11:06 Blood Pressure 141/95 H 04/22/24 11:02 Blood Pressure Position Sitting 04/22/24 11:02 Pulse Oximetry 95 04/22/24 11:02 Oxygen Delivery Method Room Air 04/22/24 11:02 Oxygen Flow Rate 0 04/22/24 11:02 Pain Level 0 04/22/24 11:02 Medical Decision Making 63-year-old male with a history of hypertension, diabetes, A-fib, who comes in with wound on his right lower leg that is concerned like infected. He says that he cut it 2 days ago fiberglass and feels like there is more swelling of his legs. He has chronic venous stasis so his legs always appear mildly red. He has not had any fevers or severe pain. He has an open 3 x 4 cm skin tear on the right distal anterior messer. There is mild erythema around it without drainage. No crepitus. Unclear if this is truly cellulitis but discussed Differential Diagnosis Differential Diagnosis: cellulitis, wound Quality:SDOH Health Related Social Needs: Health related social needs inadequate housing PFSH All Active Problems (Updated 04/22/24 @ 11:16 by Brandon Clarke MD) Leg wound, right (Acute) Essential hypertension (Chronic 06/25/13) Diabetes mellitus (Chronic 01/26/11) Internal hemorrhoid, bleeding (Acute) Hypokalemia (Acute) Medication monitoring encounter (Acute) Atrial fibrillation with RVR (Acute) Rectal pain (Acute) Lumbago (Acute) L5-S-1 disc and spinal stenosis; discectomy and laminectomy Metacarpophalangeal joint pain of right hand (Acute) Microalbuminuria due to type 2 diabetes mellitus (Acute) 08/10- microalb/ creat ration 200 Skin lesion (Acute) Degenerative joint disease of left hip (Acute) Injection under fluoroscopy: 03/20/20 Osteoarthrosis (Chronic) Peripheral venous insufficiency (Acute) Obesity (Acute) Gout (Acute) Medical History (Updated 04/22/24 @ 11:16 by Brandon Clarke MD) History of cardioversion [facility] [place], elective. -hb Atrial fibrillation Difficult airway At [facility] [place], records unavailable because intubation too long ago Hypercholesterolemia TYPE 4 HYPERLIPIDEMIA Hypertension Obesity, Class III, BMI 40-49.9 (morbid obesity) Hx of gout MIRI (obstructive sleep apnea) a. on CPAP at night Surgical History Repair of umbilical hernia (08/04/17) DISCECTOMY 01/20 Colonoscopy - IV Sedation 8 years ago-normal H/O surgical procedure a. back surgery b. wrist surgery Family History (Updated 10/13/22 @ 16:42 by Amanda Schulz) Mother , 84 Essential hypertension Heart disease Father , 80 Diabetes Essential hypertension Personal history of malignant neoplasm BLADDER.MELANOMA Depression Heart disease Stroke Brother Essential hypertension Maternal Grandfather , 93 Diabetes Alcohol abuse Heart disease Hyperlipidemia Paternal Grandfather , 71 Alcohol abuse Essential hypertension Heart disease Maternal Grandmother , 70 Diabetes Essential hypertension Heart disease Stroke Grandmother , 84 Alcohol abuse Heart disease Son Essential hypertension Sister No problems noted. Son No problems noted. Daughter No problems noted. Social History (Updated 10/13/22 @ 16:41 by Amanda Schulz) Smoking/Tobacco Use Status: Never Second Hand Exposure: Yes Smoking risk assessment performed?: Yes Alcohol Intake: current Alcohol Intake frequency: a few times a month Alcohol type: beer and wine Drug use: Never Substance use type: does not use Caregiver/Support person: No Household members: spouse and children Housing: house Communication Needs: None Do you need help understanding health information?: Never Pets and animals: No Sexually active: Yes Do you think of yourself as: straight/heterosexual Current gender identity: male What is your relationship status?: How often do you talk on the phone with friends or family?: decline to answer How often do you get together with friends or relatives?: decline to answer How often do you attend jain or islam services?: decline to answer Do you belong to any clubs or organized social groups?: decline to answer Panel score (0-1 are the most socially isolated patients): 1 What type of physical activity do you participate in: walking and bicycling Duration: 15-30 minutes/day Frequency: 3-4 times per week Radha/Rastafari: Latter-Day Special radha needs: No Seatbelt use: sometimes Helmet use: Yes Helmet use: always Drive intox or ride w/intox 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
[2024-04-22 11:38] VITALS: BP 141/95; PULSE 80; RESP 16; TEMP 36.7; O2SAT 95
[2024-04-22] MEDS: Amoxicillin 875/Clav. 125 TAB PO (11:40)
== END 2024-04-22 11:40 | disposition home or self-care (01) ==
PROVIDERS: Emergency Provider Emergency Medicine; PCP Nurse Practitioner Family
DX: S81.801A Unspecified open wound, right lower leg, initial encounter (principal); X58.XXXA Exposure to other specified factors, initial encounter
CPT/HCPCS: 99283

== ENCOUNTER 2024-04-25 09:13 | Outpatient (CLI) | payer BC, SELFPAY ==
--- NOTE | 2024-04-25 09:00 | RT.EKG_ITS ---
APPROVED REPORT Exam: Resting ECG Reason for Exam: afib Patient Location: O HR:103 bpm ECG Measurements Heart Rate 103 AXIS SC [id number] P [id number] QRSd 101 QRS -23 QT 362 T 38 QTc 474 Conclusion Atrial fibrillation...? atrial activity RSR' in V1 or V2, probably normal variant...small R' only
== END 2024-04-25 09:14 | disposition home or self-care (01) ==
LOC: DI.CARD 09:13
PROVIDERS: PCP Nurse Practitioner Family; Visit Provider Internal Medicine Cardiovascular Disease
DX: I48.91 Unspecified atrial fibrillation (principal); Z92.89 Personal history of other medical treatment
CPT/HCPCS: 93010

== ENCOUNTER → 2024-10-24 09:01 | Outpatient (BNVA) | payer MEDICARE, BC, SELFPAY | PROVIDERS: PCP Nurse Practitioner Family; Visit Provider Internal Medicine Cardiovascular Disease | DX: I48.21 Permanent atrial fibrillation (principal) | CPT/HCPCS: 99213 ==

== ENCOUNTER 2024-11-13 02:49 | Outpatient (CLI) | payer MEDICARE, BC, SELFPAY ==
[2024-11-13 07:34] LABS: HCT 48.2 % (40.0-50.0); HGB 16.1 g/dL (13.5-17.5); MCH 31.1 pg (27.0-33.0); MCHC 33.4 % (32.0-36.0); MCV 93 fL (80-95); Platelet Count 208 10^3/uL (130-400); RBC 5.18 10^6/uL (4.36-5.78); RDW 13.2 % (11.8-14.1); RDW-SD 44.9 fL; WBC 7.52 10^3/uL (4.4-10.8)
[2024-11-13 08:20] LABS: ALT 38 U/L (16-63); AST 15 U/L (15-37); Albumin 3.7 g/dL (3.4-5.0); Alkaline Phosphatase 63 U/L (46-116); Anion Gap 10.6 mmol/L (3-11); BUN 28 mg/dL (7-18); Bilirubin, Total 0.7 mg/dL (0.2-1.0); CO2 25.4 mmol/L (21.0-32.0); CREATININE 1.2 mg/dL (0.70-1.30); Calcium 9.8 mg/dL (8.5-10.1); Calculated LDL 67 mg/dL (<100); Chloride 104 mmol/L (98-107); Cholesterol 141 mg/dL (<200); Estimated GFR 67.11 (mL/min/1.73m2); Glucose 185 mg/dL (74-106); HDL Cholesterol 39 mg/dL (>or=40); Potassium 4.3 mmol/L (3.5-5.1); Sodium 140 mmol/L (136-145); Total Protein 7.9 g/dL (6.4-8.2); Triglyceride 175 mg/dL (<150)
== END 2024-11-13 02:50 | disposition home or self-care (01) ==
PROVIDERS: PCP Nurse Practitioner Family; Visit Provider Nurse Practitioner Family
DX: I10 Essential (primary) hypertension (principal); I48.91 Unspecified atrial fibrillation; E11.9 Type 2 diabetes mellitus without complications; N40.0 Benign prostatic hyperplasia without lower urinary tract symptoms; Z12.5 Encounter for screening for malignant neoplasm of prostate
CPT/HCPCS: 36415; 80053; 80061; 84153; 85027

== ENCOUNTER 2025-05-02 09:21 | Outpatient (CLI) | payer MEDICARE, BC, SELFPAY ==
[2025-05-02 17:05] LABS: Hemoglobin A1C 7.2 % (<5.7)
== END 2025-05-02 09:22 | disposition home or self-care (01) ==
PROVIDERS: PCP Nurse Practitioner Family; Referring Provider Nurse Practitioner Family; Visit Provider Nurse Practitioner Family
DX: E11.9 Type 2 diabetes mellitus without complications (principal)
CPT/HCPCS: 36415; 83036

== ENCOUNTER 2025-08-17 07:05 | Emergency (ER) | payer MEDICARE, BC, SELFPAY ==
[2025-08-17 07:08] VITALS: PULSE 68; RESP 16; TEMP 36; O2SAT 98
--- NOTE | 2025-08-17 07:12 | W.ED.GENAD ---
Discharge Plan Disposition Patient Disposition: Home Discharge Details Clinical Impression: Bursitis of right knee Primary Care Provider: Angelina Bowen ED Provider: Henri Smalls Home Meds and New Rx's Prescriptions: New doxycycline hyclate 100 mg capsule 100 mg PO BID Qty: 14 0RF No Action metformin 1,000 mg tablet 1,000 mg PO BID Qty: 180 4RF lisinopril 40 mg tablet 40 mg PO DAILY Qty: 90 4RF Jardiance 25 mg tablet 25 mg PO DAILY Qty: 90 4RF polyethylene glycol 3350 17 gram powder in packet 17 g PO HS Qty: 30 0RF Tart You 1 EACH capsule 2 ea PO DAILY Qty: 180 Rx Instructions: For gout prevention atorvastatin 20 mg tablet 20 mg PO QPM Qty: 90 3RF hydrochlorothiazide 25 mg tablet 25 mg PO DAILY Qty: 90 4RF Eliquis 5 mg tablet 5 mg PO BID Qty: 180 3RF metoprolol succinate 100 mg tablet extended release 24 hr 100 mg PO BID Qty: 180 3RF Discharge Instructions Instructions: Bursitis ED Additional Instructions: As discussed, I suspect your symptoms are secondary to what we call bursitis of your right knee, this is inflammation of a fluid-filled sac that helps lubricate the knee joint. Typically this is secondary to trauma, and resolves with use of nonsteroidal anti-inflammatory agents such as ibuprofen. However given the fact that you are on apixaban, as well as your history of previous recurrent lower extremity cellulitis, we will continue management with Tylenol and start you on doxycycline as a prophylactic as I do not believe you currently have a skin infection however persistent inflammation would be a risk factor developing skin infection Please return emergency department if you develop worsening pain, fever, chills, nausea, vomiting or any other signs of acute infection. Please follow-up with your primary care provider regarding your visit to the emergency department today. Stand Alone Forms: Portal Information HPI General Date/Time Provider Initiated Documentation: 08/17/25 07:09. HPI Narrative: MDM/Narrative: 65-year-old male multiple comorbidities including diabetes, recurrent cellulitis and gout, presents for evaluation of swollen, painful and slightly erythematous right knee. Vital signs within normal limits. Physical exam shows what is likely a traumatic bursitis of the right knee, no pain with axial loading, normal gait, no significant increased calor, however there is localized edema and erythema of the patella. Patient denies any constitutional symptoms to suggest severe acute gout flare or infectious etiology of symptoms. Doubt there is a concurrent fracture or dislocation given patient's initial traumatic injury was 8 days ago and he is ambulatory without significant pain. Given patient's anticoagulated status however unable to treat with NSAIDs, and given history of diabetes reluctant to start on systemic glucocorticoids. As such we will continue pain control with Tylenol, and start patient on doxycycline prophylactically given his history of recurrent cellulitis in the right lower extremity. Reviewed return indications of the patient. Disposition: Home HPI: 65-year-old male presents for evaluation of of right knee pain and swelling. Patient has a reported medical history of diabetes, atrial fibrillation, for which she is on apixaban, as well as gout. He states that approximately 8 days ago while walking across his driveway slipped on some ice falling forward landing on his right knee. States he did not have significant pain or injury at that time however the past several days he has noted worsening swelling and redness of the right kneecap. States that he still able to walk however some pressure applied to it can be quite painful stating that he accidentally bumped into the tailgate of his truck with his knee 2 days ago and the pain was severe. He also denies any fevers, chills, nausea, vomiting or any other new or concerning symptoms. He does note a history of recurrent right lower extremity cellulitis and is concerned that he is developing an infection and wanted to get ahead of it. ROS: Negative besides as mentioned above Exam: Gen: A&O NAD, obese HEENT: NCAT, EOMI, not icteric. External ears normal. No rhinorrhea. Moist mucous membranes. Neck: Supple, full range of motion, no observable masses, No meningeal sign. Lungs: No Respiratory distress. CV: RRR, no edema. Abdomen: Soft, nondistended, No rebound tenderness. MSK: Right lower extremity displays prominent prepatellar swelling, with localized erythema, no fluctuance, no significant tenderness to palpation, remainder of the knee joint shows no ecchymosis, no joint effusion, no pain with axial loading, no antalgic gait.. Skin: No rashes, petechiae, lesions. Normal color per patient. Neuro: Normal Gait, Grossly intact. Psych: Appropriate for situation. Related Data Home Medications ?Medication ?Instructions ?Recorded ?Confirmed vit C 30 mg-s.you 250 mg-celery 2 ea PO DAILY #180 caps 12/24/14 08/17/25 seed 75 mg-grape seed extrt capsule (Tart You) polyethylene glycol 3350 17 gram 17 g PO HS #30 ea 07/06/22 08/17/25 oral powder packet atorvastatin 20 mg tablet 20 mg PO QPM #90 tabs 08/16/24 08/17/25 empagliflozin 25 mg tablet 25 mg PO DAILY #90 tabs 09/25/24 08/17/25 (Jardiance) lisinopril 40 mg tablet 40 mg PO DAILY #90 tabs 09/25/24 08/17/25 metformin 1,000 mg tablet 1,000 mg PO BID #180 tabs 09/25/24 08/17/25 hydrochlorothiazide 25 mg tablet 25 mg PO DAILY #90 tabs 11/15/24 08/17/25 apixaban 5 mg tablet (Eliquis) 5 mg PO BID #180 tabs 01/28/25 08/17/25 metoprolol succinate 100 mg 100 mg PO BID #180 tabs 07/15/25 08/17/25 tablet,extended release 24 hr doxycycline hyclate 100 mg capsule 100 mg PO BID #14 caps 08/17/25 Previous Rx's ?Medication ?Instructions ?Recorded polyethylene glycol 3350 17 gram 17 g PO HS #30 ea 07/06/22 oral powder packet atorvastatin 20 mg tablet 20 mg PO QPM #90 tabs 08/16/24 empagliflozin 25 mg tablet 25 mg PO DAILY #90 tabs 09/25/24 (Jardiance) lisinopril 40 mg tablet 40 mg PO DAILY #90 tabs 09/25/24 metformin 1,000 mg tablet 1,000 mg PO BID #180 tabs 09/25/24 hydrochlorothiazide 25 mg tablet 25 mg PO DAILY #90 tabs 11/15/24 apixaban 5 mg tablet (Eliquis) 5 mg PO BID #180 tabs 01/28/25 metoprolol succinate 100 mg 100 mg PO BID #180 tabs 07/15/25 tablet,extended release 24 hr doxycycline hyclate 100 mg capsule 100 mg PO BID #14 caps 08/17/25 Allergies Allergy/AdvReac Type Severity Reaction Status Date / Time sulfamethoxazole (From AdvReac Intermediate Headache Verified 08/17/25 07:14 Bactrim) and stiff neck trimethoprim (From Bactrim) AdvReac Intermediate Headache Verified 08/17/25 07:14 and stiff neck General YUKO: 4 PFSH All Active Problems (Updated 08/17/25 @ 07:32 by Henri Smalls MD) Bursitis of right knee (Acute) Leg wound, right (Acute) Essential hypertension (Chronic 06/25/13) Diabetes mellitus (Chronic 01/26/11) Internal hemorrhoid, bleeding (Acute) Hypokalemia (Acute) Medication monitoring encounter (Acute) Atrial fibrillation with RVR (Acute) Rectal pain (Acute) Lumbago (Acute) L5-S-1 disc and spinal stenosis; discectomy and laminectomy Metacarpophalangeal joint pain of right hand (Acute) Microalbuminuria due to type 2 diabetes mellitus (Acute) 08/10- microalb/ creat ration 200 Skin lesion (Acute) Degenerative joint disease of left hip (Acute) Injection under fluoroscopy: 03/20/20 Osteoarthrosis (Chronic) Peripheral venous insufficiency (Acute) Gout (Acute) Medical History (Updated 08/17/25 @ 07:32 by Henri Smalls MD) History of rectal fissure surgical repair at [facility] [place]/2024 History of cardioversion [facility] [place] 03/08/23, elective. -hb Atrial fibrillation Difficult airway At [facility] [place], records unavailable because intubation too long ago Hypercholesterolemia TYPE 4 HYPERLIPIDEMIA Hypertension Obesity, Class III, BMI 40-49.9 (morbid obesity) Hx of gout MIRI (obstructive sleep apnea) a. on CPAP at night Surgical History Repair of umbilical hernia (08/04/17) DISCECTOMY 01/20 Colonoscopy - IV Sedation 8 years ago-normal H/O surgical procedure a. back surgery b. wrist surgery Family History (Updated 10/13/22 @ 16:42 by Amanda Schulz) Mother , 84 Essential hypertension Heart disease Father , 80 Diabetes Essential hypertension Personal history of malignant neoplasm BLADDER.MELANOMA Depression Heart disease Stroke Brother Essential hypertension Maternal Grandfather , 93 Diabetes Alcohol abuse Heart disease Hyperlipidemia Paternal Grandfather , 71 Alcohol abuse Essential hypertension Heart disease Maternal Grandmother , 70 Diabetes Essential hypertension Heart disease Stroke Grandmother , 84 Alcohol abuse Heart disease Son Essential hypertension Sister No problems noted. Son No problems noted. Daughter No problems noted. Social History (Updated 10/13/22 @ 16:41 by Amanda Schulz) Smoking/Tobacco Use Status: Never Second Hand Exposure: Yes Smoking risk assessment performed?: Yes Alcohol Intake: current Alcohol Intake frequency: a few times a month Alcohol type: beer and wine Drug use: Never Substance use type: does not use Caregiver/Support person: No Household members: spouse and children Housing: house Communication Needs: None Do you need help understanding health information?: Never Pets and animals: No Sexually active: Yes Do you think of yourself as: straight/heterosexual Current gender identity: male What is your relationship status?: How often do you talk on the phone with friends or family?: decline to answer How often do you get together with friends or relatives?: decline to answer How often do you attend sabianist or yazdanism services?: decline to answer Do you belong to any clubs or organized social groups?: decline to answer Panel score (0-1 are the most socially isolated patients): 1 What type of physical activity do you participate in: walking and bicycling Duration: 15-30 minutes/day Frequency: 3-4 times per week Radha/Restorationism: Denominational Special radha needs: No Seatbelt use: sometimes Helmet use: Yes Helmet use: always Drive intox or ride w/intox commercial trailer truck driver: No Do you feel safe at home: Yes Do you feel safe in your relationship?: Yes
[2025-08-17 07:15] VITALS: BP 136/77
[2025-08-17] MEDS: Doxycycline Hyclate 100 MG CAP PO (07:39)
== END 2025-08-17 07:43 | disposition home or self-care (01) ==
PROVIDERS: Emergency Provider General Practice; PCP Nurse Practitioner Family
DX: M70.51 Other bursitis of knee, right knee (principal)
CPT/HCPCS: 99283 ×2